=== PATIENT | female | born 1960 | race Caucasian/White ===

== ENCOUNTER 2021-12-03 19:20 | Outpatient (CLI) | payer OTHER, SELFPAY ==
[2021-12-03 21:50] LABS: Creatinine Urine 85.5 mg/dL
[2021-12-03 21:54] LABS: Microalbumin Creatinine Ratio 10 mg/g (0-30); Microalbumin Urine 1 mg/dL
== END 2021-12-03 19:21 | disposition home or self-care (01) ==
LOC: LKVREF 19:20
PROVIDERS: PCP Emergency Medicine; Visit Provider Emergency Medicine
DX: E11.9 Type 2 diabetes mellitus without complications (principal); E04.1 Nontoxic single thyroid nodule; I10 Essential (primary) hypertension; E66.8 Other obesity; R73.01 Impaired fasting glucose
CPT/HCPCS: 82043; 82570

== ENCOUNTER 2022-03-18 14:53 | Outpatient (CLI) | payer OTHER, SELFPAY ==
[2022-03-18 22:21] LABS: Vitamin B12* 815 pg/mL (243-894)
[2022-03-20 22:19] LABS: Free T3 3.5 pg/mL (2.5-4.3)
== END 2022-03-18 14:54 | disposition home or self-care (01) ==
PROVIDERS: PCP Emergency Medicine; Visit Provider Emergency Medicine
DX: E04.1 Nontoxic single thyroid nodule (principal); E11.9 Type 2 diabetes mellitus without complications; R73.01 Impaired fasting glucose; I48.91 Unspecified atrial fibrillation; I10 Essential (primary) hypertension; Z98.84 Bariatric surgery status
CPT/HCPCS: 82607; 84439; 84443; 84481

== ENCOUNTER 2022-05-29 08:21 | Outpatient (CLI) | payer OTHER, SELFPAY | END 2022-05-29 08:22 | disposition home or self-care (01) | PROVIDERS: PCP Emergency Medicine; Visit Provider Emergency Medicine | DX: I10 Essential (primary) hypertension (principal); E11.9 Type 2 diabetes mellitus without complications; E04.1 Nontoxic single thyroid nodule | CPT/HCPCS: 80048 ==

== ENCOUNTER 2022-07-29 12:16 | Outpatient (CLI) | payer OTHER, SELFPAY | END 2022-07-29 12:17 | disposition home or self-care (01) | PROVIDERS: PCP Emergency Medicine; Visit Provider Emergency Medicine | DX: E05.90 Thyrotoxicosis, unspecified without thyrotoxic crisis or storm (principal); R11.10 Vomiting, unspecified; R00.0 Tachycardia, unspecified; I48.91 Unspecified atrial fibrillation | CPT/HCPCS: 80076; 83690; 84439; 84443 ==

== ENCOUNTER 2022-08-13 07:11 | Outpatient (CLI) | payer OTHER, SELFPAY ==
--- NOTE | 2022-08-13 07:15 | CRLHL7_ITS ---
For Patients: As a result of the Century Cures Act, medical imaging exams and procedure reports are released immediately into your electronic medical record. You may view this report before your referring provider. If you have questions, please contact your health care provider. INDICATION: Nausea with vomiting. TECHNIQUE: Ultrasound abdomen limited. Sonographic images of the right upper quadrant were obtained using adame-scale and color Doppler images. COMPARISON: None. FINDINGS: Liver: Diffuse hepatic steatosis with areas of fatty sparing. No suspicious mass or duct dilatation. Gallbladder: No stones or sludge. Normal wall thickness. No pericholecystic fluid. Common bile duct: 5 mm. No duct dilatation. Pancreas: Unremarkable. Right kidney: There is an echogenic mass measuring 2.5 x 2.4 x 1.9 cm in the upper pole of the right kidney. Further evaluation with nonemergent CT scan of the abdomen without and with IV contrast is recommended. The right kidney is normal in size measuring 11.6 centimeters in length. No right renal stone or hydronephrosis is identified. Vasculature: Proximal abdominal aorta and IVC are unremarkable. IMPRESSION: 1. Normal gallbladder. 2. Diffuse hepatic steatosis with areas of fatty sparing. 3. Echogenic mass measuring 2.5 x 2.4 x 1.9 centimeter within the right kidney upper pole. Further evaluation with nonemergent CT scan of the abdomen without and with IV contrast is recommended. Dictated by Julio Wheeler MD @ 08/13/2022 8:09:29 AM (Electronically Signed)
== END 2022-08-13 07:12 | disposition home or self-care (01) ==
PROVIDERS: PCP Emergency Medicine; Visit Provider Emergency Medicine
DX: R11.2 Nausea with vomiting, unspecified (principal); K76.0 Fatty (change of) liver, not elsewhere classified; N28.89 Other specified disorders of kidney and ureter
CPT/HCPCS: 76705

== ENCOUNTER 2022-08-29 15:47 | Outpatient (CLI) | payer OTHER, SELFPAY ==
--- NOTE | 2022-08-29 16:00 | CRLHL7_ITS ---
For Patients: As a result of the Century Cures Act, medical imaging exams and procedure reports are released immediately into your electronic medical record. You may view this report before your referring provider. If you have questions, please contact your health care provider. INDICATION: Echogenic mass upper pole right kidney identified on a recent ultrasound August 13, 2022. Followup. TECHNIQUE: Multi phase CT of the abdomen and pelvis without and with intravenous contrast. 130 cc nonionic Isovue-370 administered. COMPARISON: Correlation is made with a right upper quadrant ultrasound August 13, 2022. FINDINGS: 1.4 x 1.6 x 1.6 cm right renal angiomyolipoma superior lateral pole. No renal stone, hydronephrosis, and no evidence for filling defects within the collecting systems or visualized included ureters. Curvilinear fibrosis or atelectasis posteromedial right lower lobe of the lung. No pleural or pericardial effusions. Postsurgical change from gastric bypass surgery. Small surgical clip or suture subcutaneous fat anterior to the upper abdominal wall. The liver, spleen, pancreas, gallbladder, adrenal glands, and left kidney are within normal limits. Normal caliber abdominal aorta and iliac arteries. Normal inferior vena cava. There is no evidence for bowel obstruction or ileus. No ascites or lymphadenopathy. The urinary bladder, uterus, and both adnexa are normal. Scattered hypertrophic and degenerative change of the included thoracolumbar spine with multilevel degenerative disc disease best appreciated at L3 and L4. IMPRESSION: Right renal angiomyolipoma. Please note that all CT scans at this facility use dose modulation, iterative reconstruction, and/or weight-based dosing when appropriate to reduce radiation dose to as low as reasonably achievable. Dictated by Aly Schreiber MD @ 09/01/2022 9:15:17 AM (Electronically Signed)
[2022-08-29 16:17] LABS: Creatinine* 0.7 mg/dL (0.5-1.5); Estimated Glomerular Filt Rate 97 ml/min
== END 2022-08-29 15:48 | disposition home or self-care (01) ==
LOC: CT 15:48
PROVIDERS: PCP Emergency Medicine; Visit Provider Emergency Medicine
DX: N28.9 Disorder of kidney and ureter, unspecified (principal); D17.71 Benign lipomatous neoplasm of kidney
CPT/HCPCS: 36415; 74178; 82565; Q9967

== ENCOUNTER 2022-10-06 08:26 | Outpatient (CLI) | payer OTHER, SELFPAY | END 2022-10-06 08:27 | disposition home or self-care (01) | LOC: NFLDREF 10-08 11:38 | PROVIDERS: PCP Emergency Medicine; Referring Provider Emergency Medicine; Visit Provider Emergency Medicine | DX: E05.90 Thyrotoxicosis, unspecified without thyrotoxic crisis or storm (principal); E11.9 Type 2 diabetes mellitus without complications; I10 Essential (primary) hypertension | CPT/HCPCS: 80053; 80061; 82043; 82570; 84443 ==

== ENCOUNTER 2023-09-16 08:45 | Outpatient (CLI) | payer OTHER, SELFPAY ==
--- OUTSIDE RECORDS SUMMARY | 2023-09-16 15:23 | XMS_ITS | Encounter Summary ---
Author Organization [place] Address [address] [place] [address]. [place] [address] Care Team Providers Care Laborer Orchard Name Role Phone Ellen Draper MD Primary Care Provider [phone] Encounter Details Date Type Department Care Team (Late st Contact Info) Description 06/17/2023 Medical Correspondence [facility] Info Mgmt [facility] [address] [place] [address] Scan, Non-Provider Social History Tobacco Use Types Packs/Day Years Used Date Smoking Tobacco: Never Smokeless Tobacco: Never Alcohol Use Standard Drinks/Week Comments Yes 0 (1 standard drink = 0.6 oz pur e alcohol) 2 drinks per month Adolescent Education Answer Date Record ed Getting School Help Needed Not on file 11/22 Sex and Gender Information Value Date Recorded Sex Assigned at Not on file Gender Identity Not on file Sexual Orientation Not on file documented as of this encounter Plan of Treatment Upcoming Encounters Date Type Department Care Team (Latest Contact Info) Description 09/30/2023 7:30 AM CDT Office Visit SX SURGERY CASES Haylee Melgar MD [facility] [address] [place] [address] India John PA-C [address] [place], [place] [id number] 09/30/2023 7:40 AM CDT Hospital Encounter [facility] Per[facility]Op [facility] [address] [place] [address] Haylee Melgar MD [facility] [place] [address] [facility] [address] [place] [address] 09/30/2023 7:40 AM CDT - 09/30/2023 10:10 AM CDT Surgery [facility] [address] [place] [address] Haylee Melgar MD [facility] [address] [facility] [address] [place] [address] Total Thyroidectomy Scheduled Procedures Name Priority Associated Diagnoses Date/Ti me THYROIDECTOMY, TOTAL Toxic multinodular goiter 09/30/2023 7:40 AM CDT documented as of this encounter Visit Diagnoses Not on filedocumented in this encounter Care Teams Laborer Orchard Relationship Specialty Start Date End Date Ellen Draper MD [facility] [address], [place] [address] PCP - General Family Medicine 03/25/21 documented as of this encounter
--- OUTSIDE RECORDS SUMMARY | 2023-09-16 15:23 | XMS_ITS | Encounter Summary ---
Author Organization [place] Address [address] [place] [address] Care Team Providers Care Roofing Applicator Name Role Phone Ellen Draper MD Primary Care Provider [phone]- [phone] Encounter Details Date Type Department Care Team (Latest Contact Info) Description 07/21/2023 Travel Social History Tobacco Use Types Packs/Day Years [...] Melgar MD [facility] [address] [address] India John PA-C [address] [place] [address] 09/30/2023 7:40 AM CDT Hospital Encounter [facility] PeriOp Services [address] [place] [phone] Haylee Melgar MD [facility] [address] [place] [address] 09/30/2023 7:40 AM CDT - 09/30/2023 10:10 AM CDT [facility]Op Services [address] [place] [address] Haylee Melgar MD [facility] [address] [place] [address] Total Thyroidectomy Scheduled Procedures Name Priority Associated Diagnoses Date/Ti me THYROIDECTOMY, TOTAL Toxic multinodular goiter 09/30/2023 7:40 AM CDT documented as of this encounter Visit Diagnoses Not on filedocumented in this encounter Care Teams Roofing Applicator Relationship Specialty Start Date End Date Ellen Draper MD [facility] [address] [place] [address] PCP - General Family Medicine 03/25/21 documented as of this encounter
--- OUTSIDE RECORDS SUMMARY | 2023-09-16 15:23 | XMS_ITS | Encounter Summary ---
Author Organization [place] Address [address] [place] [address] Care Team Providers Care Sand Control Worker Name Role Phone Ellen Draper MD Primary Care Provider [phone]- [phone] Haylee Melgar MD Unavailable [phone] Reason for Visit * Reason Onset Date Comments Schedule Surgery 08/21/2023 TOTAL THYROIDEC WILMA GENERAL PT INST TO HAVE H&P WITH PCP 150 MIN REQ PA ASSIST MGB NMS Encounter Details Date Type Department Care Team (Late st Contact Info) Description 08/21/2023 [facility] [place] [address] [place] [address] Haylee Melgar MD [facility] [place] [address] [facility] [address] [place] [address] Schedule Surgery (TOTAL THYROIDECTOMY GENERAL PT INST TO HAVE H&P WITH PCP 150 MIN REQ PA ASSIST MGB NMS) Social History Tobacco Use Types Packs/Day Years [...] on file documented as of this encounter Miscellaneous Notes * Telephone Encounter - Sirovy, Jenn, HINGING MACHINE OPERATOR - 08/21/2023 12:58 PM CDT Type of surgery: TOTAL THYROIDECTOMY Location of surgery: [facility] Date and time of surgery: 09/30/2023 @ 7:30 AM Surgeon: Haylee Melgar MD Pre-Op Appt Date: PATIENT TO SCHEDULE Post-Op Appt Date: PATIENT TO SCHEDULE Packet sent out: Yes Pre-cert/Authorization completed: Not Applicable Date: 08/21/2023 TOTAL THYROIDECTOMY GENERAL PT INST TO HAVE H&P WITH PCP 150 MIN REQ PA ASSIST MGB NMS documented in this encounter Plan of Treatment Upcoming Encounters Date Type Department Care Team (Latest Contact Info) Description 09/30/2023 7:30 AM CDT Office Visit SX SURGERY CASES Haylee Melgar MD [facility] [address] [place] [address] India John PA-C [address] [place] [address] 09/30/2023 7:40 AM CDT Hospital Encounter [facility] PeriOp Services [address] [place] [address] Haylee Melgar MD [facility] [address] [place] [address] 09/30/2023 7:40 AM CDT - 09/30/2023 10:[address] [facility] PeriOp [facility] [address] [place] [address] Haylee Melgar MD [facility] [address] [place] [address] Total Thyroidectomy Scheduled Procedures Name Priority Associated Diagnoses Date/Ti me THYROIDECTOMY, TOTAL Toxic multinodular goiter 09/30/2023 7:40 AM CDT documented as of this encounter Visit Diagnoses Not on filedocumented in this encounter Care Teams Sand Control Worker Relationship Specialty Start Date End Date Ellen Draper MD [facility] [address] [place] [address] PCP - General Family Medicine 03/25/21 Haylee Melgar MD [facility] [address] [address] Assigned Surgical Provider 08/09/23 documented as of this encounter
--- OUTSIDE RECORDS SUMMARY | 2023-09-16 15:23 | XMS_ITS | Clinical Summary ---
Author Organization [place] Address [address] [place] [address] Care Team Providers Care Purchasing Coordinator Name Role Phone Ellen Draper MD Primary Care Provider [phone] Haylee Melgar MD Unavailable [phone] Allergies Active Allergy Reactions Criticality Noted Date Comments Compazine 09/03/2012 Penicillins Other (See Comments),Rash High 07/02/2010 Pt. Was a child- ? rash childhood allergy Prochlorperazine Other (See Comments) 1 Other Reaction(s): restless legs, Tremors Adverse reaction Medications Medication Sig Dispensed Refills Start Date End Date Status lisinopril (PRINIVIL,ZESTRIL) 10 MG tablet Take 10 mg by mouth daily. Active methimazole (TAPAZOLE) 5 MG tablet Take 5 mg by mouth 06/15/2022 Active metoprolol tartrate (LOPRESSOR) 25 MG tablet 25 mg 2 times daily 10/26/2021 Activ e Multiple Vitamin (ONE-A-DAY ESSENTIAL) TABS Take 1 tablet by mouth daily Active pantoprazole (PROTONIX) 40 MG EC tablet Take 40 mg by mouth 07/04/2022 Activ e OZEMPIC, 0.25 OR 0.5 MG/DOSE, 2 MG/3ML pen Inject 0.5 mg Subcutaneous every 7 days 09/03/2022 Active Active Problems Problem Noted Date Diagnosed Date Palpitations Atypical chest pain Hypertension Overview: hx of atrial fib. Gastroesophageal reflux disease Atrial fibrillation Obesity Overview: h/o bariatric surgery Thyroid nodule Atrial flutter SVT (supraventricular tachycardia) (H24) Encounters Date Type Department Care Team Description 08/21/2023 Telephone [facility] Surgery [facility] [address] [place] [address] Haylee Melgar MD Schedule Surgery (TOTAL THYROIDECTOMY GENERAL PT INST TO HAVE H&P WITH PCP 150 MIN REQ PA ASSIST MGB NMS) 07/21/2023 3:15 PM CDT Office Visit [facility] Surgery [facility] [address] [place] [address] Haylee Melgar MD Toxic multinodular goiter (Primary Dx) 07/21/2023 Travel 06/18/2023 Telephone [facility] [address] [place] [address] Haylee Melgar MD Referral (Thyroid) 06/17/2023 Medical Correspondence [facility] [address] [place] [address] Scan, Non-Provider from Last 3 Months Family History Medical History Relation Comments Colon Cancer No family hx of Social History Tobacco Use Types Packs/Day Years [...] on file Sexual Orientation Not on file Last Filed Vital Signs Vital Sign Reading Time Taken Comments Blood Pressure 132/80 07/21/2023 3:19 PM CDT Pulse 73 07/21/2023 3:19 PM CDT Temperature 36 ??C (96.8 ??F) 07/27/2022 4:4 2 AM CDT Respiratory Rate 16 07/21/2023 3:19 PM CDT Oxygen Saturation 98% 07/21/2023 3:1 9 PM CDT Inhaled Oxygen Concentration - - Weight 108.9 kg (240 lb) 07/21/2023 3:1 9 PM CDT patient reported Height 162.6 cm (5' 4) 07/21/2023 3:19 PM CDT Body Mass Index 41.2 07/21/2023 3:19 PM CDT Plan of Treatment Upcoming Encounters Date Type Department Care Team (Latest Contact Info) Description 09/30/2023 7:30 AM CDT Office Visit SX SURGERY CASES Haylee Melgar MD [facility] [address] [place] [address] India John PA-C [address] [place] [address] 09/30/2023 7:40 AM CDT Hospital Encounter [facility] PeriOp Services [address] [place] [address] Haylee Melgar MD [facility] [address] [place] [address] 09/30/2023 7:40 AM CDT - 09/30/2023 10:10 AM CDT Surgery [facility] Per[facility]Op [facility] [address] [place] [address] [phone] Haylee Melgar MD [facility] [address] [place] [address] Total Thyroidectomy Scheduled Procedures Name Priority Associated Diagnoses Date/Ti me THYROIDECTOMY, TOTAL Toxic multinodular goiter 09/30/2023 7:40 AM CDT Health Maintenance Due Date Last Done Comments ADVANCE CARE PLANNING 1960 ANNUAL REVIEW OF HM ORDERS 1960 CT COLONOGRAPHY 1960 FIT 1960 FLEX SIG 1960 YEARLY PREVENTIVE VISIT 1960 sDNA (Cologuard) 1960 HIV SCREENING 1974 HEPATITIS C SCREENING 1977 RSV VACCINE ( & 60+) (1 - 1-dose 60+ series) 2019 PHQ-2 (once per calendar year) 2023 ZOSTER IMMUNIZATION (2 of 2) 10/09/2023 08/14/2023 INFLUENZA VACCINE (#1) 2023 , 11/18/2021, 12/06/2020, Additional history exists LIPID 04/19/2024 04/20/2019 MAMMO SCREENING 07/11/2024 07/11/2022, 06/16, 04/30/2020, Additional history exists DTAP/TDAP/TD IMMUNIZATION (2 - Td or Tdap) 01/01/2025 01/01/2015 GLUCOSE 07/27/2025 07/27/2022, 03/0 05/2019, 04/03/2019, Additional history exists PAP 02/02/2026 02/02/2023, 03/0 10/2019, 04/25/2019 COLONOSCOPY 04/08/2031 04/08/2021, 03/20, 02/27/2011, Additional history exists COLORECTAL CANCER SCREENING 04/08/2031 Pneumococcal Vaccine: Pediatrics (0 to 5 Years) and At-Risk Patients (6 to 64 Years) Aged Out 10/28/2012 No longer eligible based on patient's age to complete this topic COVID-19 Vaccine Completed 11/21/2022, 04/2021, 06/24/2021, Additional history exists HPV IMMUNIZATION Aged Out No longer e ligible based on patient's age to complete this topic IPV IMMUNIZATION Aged Out No longer e ligible based on patient's age to complete this topic MENINGITIS IMMUNIZATION Aged Out No l onger eligible based on patient's age to complete this topic RSV MONOCLONAL ANTIBODY Aged Out No l onger eligible based on patient's age to complete this topic Procedures Procedure Name Priority Date/Time Associated Diagnosis Comments LAB RESULT - HIM SCAN 06/17/2023 12:00 AM CDT BASIC METABOLIC PANEL STAT 07/27/2022 4:49 AM CDT MA SCREENING DIGITAL BILATERAL Routine 07/11/2022 7:38 AM CDT Encounter for screening mammogram for malignant neoplasm of breast COLONOSCOPY Routine 04/08/2021 7:32 AM WATER PLANT MAINTENANCE MECHANIC LIPID PROFILE Routine 04/20/2019 from Last 3 Months or Most Recently Relevant to Health Maintenance Results * Lab Result - HIM Scan (06/17/2023 12:00 AM CDT) 06/17/2023 Provider Outside NON-BEAKER LAB TE STING * (ABNORMAL) Basic metabolic panel (BMP) (07/27/2022 4:49 AM CDT) Sodium 138 136 - 145 mmol/L 07/27/2022 5:27 AM CDT LABORATORY Potassium 4.1 3.4 - 5.3 mmol/L 07/27/2022 5:27 AM CDT LABORATORY Chloride 103 98 - 107 mmol/L 07/27/2022 5:27 AM CDT LABORATORY Carbon Dioxide (CO2) 23 22 - 29 mmol/L 07/27/2022 5:27 AM CDT LABORATORY Anion Gap 12 7 - 15 mmol/L 07/27/2022 5:27 AM CDT LABORATORY Urea Nitrogen 9.8 8.0 - 23.0 mg/dL 07/27/2022 5:27 AM CDT LABORATORY Creatinine 0.77 0.51 - 0.95 mg/dL 07/27/2022 5:27 AM CDT [facility] Calcium 9.2 8.8 - 10.2 mg/dL 07/27/2022 5:27 AM CDT LABORATORY Glucose 127(H) 70 - 99 mg/dL 07/27/2022 5:27 AM CDT [facility] GFR Estimate 86 >60 mL/min/1.7 3m2 07/27/2022 5:27 AM CDT [facility] Comment:eGFR calculated usin g 2020 CKD-EPI equation. Blood STRUCTURE OF LEFT UPPER LIMB / Unknown Venipuncture / Unknown 07/27/2022 4:49 AM CDT 07/27/2022 4:53 AM CDT Andrea Medellin MD LAB - BLO OD ORDERABLES [facility] Acute [facility] Lab [address] Lab (1st floor, no room number) [place] [address], [facility] [phone] * MA Screening Digital Bilateral (07/11/2022 7:38 AM CDT) Anatomical Region Laterality Modality Breast Bilateral Mammography Impressions 07/11/2022 10:29 AM CDT IMPRESSION: ACR BI-RADS Category 1: Negative RECOMMENDED FOLLOW-UP: Annual routine screening mammogram The results and recommendations of this examination will be communicated to the patient. Benjamin Raines MD Narrative 07/11/2022 10:29 AM CDT BILATERAL FULL FIELD DIGITAL SCREENING MAMMOGRAM Performed on: 07/11/22 Compared to: 06/28/2021, 04/30/2020, and 04/22/2019 Technique: This study was evaluated with the assistance of Computer-Aided Detection. Findings: The breasts have scattered areas of fibroglandular density. ?? There is no radiographic evidence of malignancy. Ellen Draper MD IMG MAMMOGRAPHY OR DERABLES * COLONOSCOPY (04/08/2021 7:32 AM WATER PLANT MAINTENANCE MECHANIC) Pathologist [facility] Patient Name: Paulina Perkins ? Procedure Date: 04/08/2021 7:32 AM ? Date of : 1960 ?Admit Type: Outpatient Age: 61 ? Gender: Female Attending MD: Bayron Thornton MD ?? Total Sedation Time: 22_minutes continuous bedside 1:1 Instrument Name: 225 - Adult Colonoscope Procedure: ?Colonoscopy Indications: ?Screening for colorectal malignant neoplasm Providers: ?Bayron Thornton MD (Doctor) Referring MD: ? Medicines: ?Midazolam 3 mg IV, Fentanyl 150 micrograms IV Complications: ?No immediate complications. Procedure: ?Pre-Anesthesia Assessment: ?- Prior to the procedure, a History and Physical ?was performed, and patient medications and ?allergies were reviewed. The patient is competent. ?The risks and benefits of the procedure and the ?sedation options and risks were discussed with the ?patient. All questions were answered and informed ?consent was obtained. Patient identification and ?proposed procedure were verified by the physician ?in the procedure room. Mental Status Examination: ?alert and oriented. Airway Examination: normal ?oropharyngeal airway and neck mobility. Respiratory ?Examination: clear to auscultation. CV Examination: ?normal. Prophylactic Antibiotics: The patient does ?not require prophylactic antibiotics. Prior ?Anticoagulants: The patient has taken no ?anticoagulant or antiplatelet agents. ASA Grade ?Assessment: II - A patient with mild systemic ?disease. After reviewing the risks and benefits, ?the patient was deemed in satisfactory condition to ?undergo the procedure. The anesthesia plan was to ?use moderate sedation / analgesia (conscious ?sedation). Immediately prior to administration of ?medications, the patient was re-assessed for ?adequacy to receive sedatives. The heart rate, ?respiratory rate, oxygen saturations, blood ?pressure, adequacy of pulmonary ventilation, and ?response to care were monitored throughout the ?procedure. The physical status of the patient was ?re-assessed after the procedure. ?After obtaining informed consent, the colonoscope ?was passed under direct vision. Throughout the ?procedure, the patient's blood pressure, pulse, and ?oxygen saturations were monitored continuously. The ?Olympus Adult Colonoscope, Model # CF-DY677L, ?[place] # 225, SN # [id number] was introduced through ?the anus and advanced to the cecum, identified by ?appendiceal orifice and ileocecal valve. The ?colonoscopy was performed without difficulty. The ?patient tolerated the procedure well. The quality ?of the bowel preparation was good. The ileocecal ?valve, appendiceal orifice, and rectum were ?photographed. ? Findings: ? The perianal and digital rectal examinations were normal. ? A few small and large-mouthed diverticula were found in the sigmoid ? colon. ? The exam was otherwise without abnormality on direct and retroflexion ? views. ? Impression: ? - Diverticulosis in the sigmoid colon. ?- The examination was otherwise normal on direct ?and retroflexion views. ?- No specimens collected. Recommendation: ? - Repeat colonoscopy in 10 years for screening ?purposes. ? Procedure Code(s): ? --- Professional --- ? G0121, Colorectal cancer screening; colonoscopy on individual not ? meeting criteria for high risk Diagnosis Code(s): ? --- Professional --- ? Z12.11, Encounter for screening for malignant neoplasm of colon CPT copyright 2020 [employer]. All rights reserved. The codes documented in this report are preliminary and upon finisher polisher review may be revised to meet current compliance requirements. Electronically signed by Bayron Thornton MD __ Bayron Thornton MD 04/08/2021 8:11:15 AM I was physically present for the entire viewing portion of the exam. Bayron Thornton MD Number of Addenda: 0 Note Initiated On: 04/08/2021 7:32 AM MRN: ?[id number] Procedure Date: ? 04/08/2021 7:32:20 AM Scope Withdrawal Time: 0 hours 6 minutes 8 seconds Total Procedure Duration: 0 hours 20 minutes 8 seconds Estimated Blood Loss: ? Scope In: 7:45:28 AM Scope Out: 8:05:36 AM RADIOLOGY RESULTS 04/08/2021 7:32 AM WATER PLANT MAINTENANCE MECHANIC Bayron Thornton MD PROCEDURES RADIOLOGY RESULTS * Lipid Profile (04/20/2019) Cholesterol 143 90 - 200 mg/dL [facility] Triglycerides 108 40 - 197 mg/dL [facility] HDL Cholesterol 42 >=50 mg/dL [facility] LDL Cholesterol Calculated 79 <100 mg/dL [facility] Non HDL Cholesterol [facility] Blood specimen (specimen) 04/20/2019 Patient Reported LAB - BLOOD ORDERABL ES [facility] [address] [phone] from Last 3 Months or Most Recently Relevant to Health Maintenance Care Teams Purchasing Coordinator Relationship Specialty Start Date End Date Ellen Draper MD [facility] [address] [place] [address] PCP - General Family Medicine 03/25/21 Haylee Melgar MD [facility] [address] [facility] [address] [place] [address] Assigned Surgical Provider 08/09/23
--- OUTSIDE RECORDS SUMMARY | 2023-09-16 15:23 | XMS_ITS | Referral Summary ---
Author Organization [place] Address [address] [facility] [place] [address] Care Team Providers Care Sash Maker Name Role Phone Ellen Draper MD Primary Care Provider [phone]- [phone] Haylee Melgar MD Unavailable [phone] Encounters Date Type Department Care Team Description 08/21/2023 Telephone [facility] [address], [address] [place] [address] Haylee Melgar MD Schedule Surgery (TOTAL THYROIDECTOMY GENERAL PT INST TO HAVE H&P WITH PCP 150 MIN REQ PA ASSIST MGB NMS) 07/21/2023 Travel 07/21/2023 3:15 PM CDT Office Visit [facility] [address], [address] [place] [address] Haylee Melgar MD Toxic multinodular goiter (Primary Dx) 06/18/2023 Telephone [facility] [address], [address] [place] [address] Haylee Melgar MD Referral (Thyroid) 06/17/[address] [facility] [address] [place] [address] Scan, Non-Provider from Last 3 Months Allergies Active Allergy Reactions Criticality Noted Date [...] nodule Atrial flutter SVT (supraventricular tachycardia) (H24) Social History Tobacco Use Types Packs/Day Years [...] [place] [address] [place] [address] India John PA-C [address] [place] [address] 09/30/2023 7:40 AM CDT Hospital Encounter [facility] [address] [place] [address] Haylee Melgar MD [facility] [address] [place] [address] 09/30/2023 7:40 AM CDT - 09/30/2023 10:10 AM CDT Surgery [facility] [address] [place] [address] [phone] Haylee Melgar MD [facility] [place] [address] [place] [address] Total Thyroidectomy Scheduled Procedures Name Priority Associated Diagnoses Date/Ti me THYROIDECTOMY, TOTAL Toxic multinodular goiter 09/30/2023 7:40 AM CDT Procedures Procedure Name Priority Date/Time Associated Diagnosis Comments LAB RESULT - HIM SCAN 06/17/2023 12:00 AM CDT BASIC METABOLIC PANEL STAT 07/27/2022 4:49 AM CDT MA SCREENING DIGITAL BILATERAL Routine 07/11/2022 7:38 AM CDT Encounter for screening mammogram for malignant neoplasm of breast COLONOSCOPY Routine 04/08/2021 7:32 AM PREVENTION COORDINATOR LIPID PROFILE Routine 04/20/2019 from Last 3 [...] - 5.3 mmol/L 07/27/2022 5:27 AM CDT [facility] Chloride 103 98 - 107 mmol/L 07/27/2022 5:27 AM CDT LABORATORY Carbon Dioxide (CO2) 23 22 - 29 mmol/L 07/27/2022 5:27 AM CDT [facility] Anion Gap 12 7 - 15 mmol/L 07/27/2022 5:27 AM CDT [facility] Urea Nitrogen 9.8 8.0 - 23.0 mg/dL 07/27/2022 5:27 AM CDT LABORATORY Creatinine 0.77 0.51 - 0.95 mg/dL 07/27/2022 5:27 AM CDT LABORATORY Calcium 9.2 8.8 - 10.2 mg/dL 07/27/2022 5:27 AM CDT LABORATORY Glucose 127(H) 70 - 99 mg/dL 07/27/2022 5:27 AM CDT [facility] GFR Estimate 86 >60 mL/min/1.7 3m2 07/27/2022 5:27 AM CDT [facility] Comment:eGFR calculated usin 2020 CKD-EPI equation. Blood STRUCTURE OF LEFT UPPER LIMB / Unknown Venipuncture / Unknown 07/27/2022 4:49 AM CDT 07/27/2022 4:53 AM CDT Andrea Medellin MD LAB - BLO OD ORDERABLES [facility] [address] [facility] Lab (1st floor, no room number) [place] [address], [facility] [phone] * MA Screening Digital Bilateral (07/11/2022 7:38 [...] OR DERABLES * COLONOSCOPY (04/08/2021 7:32 AM PREVENTION COORDINATOR) [facility] Patient Name: Paulina Perkins ? Procedure Date: [...] continuously. The ?Olympus Adult Colonoscope, Model # CF-PY357N, ?[place]ora # 225, SN # [id number] was introduced through ?the anus and advanced [...] malignant neoplasm of colon CPT copyright 2020 [employer]. All rights reserved. The codes documented in this report are preliminary and upon remote medical coder review may be revised to meet current compliance requirements. Electronically signed by Bayron Thornton MD __ Bayron Thornton MD 04/08/2021 8:11:15 AM I was physically present for the entire viewing portion of the exam. Bayron Thornton MD Number of Addenda: 0 Note Initiated On: 04/08/2021 7:32 AM MRN: ?[id number] Procedure Date: ? 04/08/2021 7:32:20 AM Scope Withdrawal Time: 0 hours 6 minutes 8 seconds Total Procedure Duration: 0 hours 20 minutes 8 seconds Estimated Blood Loss: ? Scope In: 7:45:28 AM Scope Out: 8:05:36 AM RADIOLOGY RESULTS 04/08/2021 7:32 AM PREVENTION COORDINATOR Bayron Thornton MD PROCEDURES RADIOLOGY RESULTS * Lipid Profile (04/20/2019) Cholesterol 143 90 - 200 mg/dL [facility] Triglycerides 108 40 - 197 mg/dL [facility] HDL Cholesterol 42 >=50 mg/dL [facility] LDL Cholesterol Calculated 79 <100 mg/dL [facility] Non HDL Cholesterol [facility] Blood specimen (specimen) 04/20/2019 Patient Reported LAB - BLOOD ORDERABL ES [facility] [address] [phone] from Last 3 Months or Most Recently Relevant to Health Maintenance Care Teams Sash Maker Relationship Specialty Start Date End Date Ellen Draper MD [facility] [address] [place] [address] PCP - General Family Medicine 03/25/21 Haylee Melgar MD [facility] [place] [address] [facility] [address] [place] [address] Assigned Surgical Provider 08/09/23
--- OUTSIDE RECORDS SUMMARY | 2023-09-16 15:23 | XMS_ITS | Encounter Summary ---
Author Organization [facility] Address [address], [place] [address] Care Team Providers Care Fish Flipper Name Role Phone Adriana Bridges MD Primary Care Provider [phone] Encounter Details Date Type Department Care Team (Late st Contact Info) Description 01/22/2016 Correspondence None No Primary/Referring, Phy CHIROPRACTIC PATIENT LIAB NOTIFICATION AND AGRMNT Social History Tobacco Use Types Packs/Day Years Used Date Smoking Tobacco: Never Assessed Sex and Gender Information Value Date Recorded Sex Assigned at Not on file Gender Identity Not on file Sexual Orientation Not on file documented as of this encounter Plan of Treatment Not on file documented as of this encounter Visit Diagnoses Not on filedocumented in this encounter Care Teams Fish Flipper Relationship Specialty Start Date End Date Adriana Bridges MD [address] [place] [address] PCP - General Family Practice 01/21/16 documented as of this encounter
--- OUTSIDE RECORDS SUMMARY | 2023-09-16 15:23 | XMS_ITS | Encounter Summary ---
Author Organization [place] Address [address] [place] [address] Care Team Providers Care Flight Operations Specialist Name Role Phone Ellen Draper MD Primary Care Provider [phone] Reason for Visit * Reason Comments New Patient thyroid Encounter Details Date Type Department Care Team (Late st Contact Info) Description 07/21/2023 3:15 PM CDT Office Visit [facility] [place] [address] [place] [address] Haylee Melgar MD [facility] [address] [place] [address] Toxic multinodular goiter (Primary Dx) Social History Tobacco Use Types Packs/Day Years [...] on file documented as of this encounter Last Filed Vital Signs Vital Sign Reading Time Taken Comments Blood Pressure 132/80 07/21/2023 3:19 PM CDT Pulse 73 07/21/2023 3:19 PM CDT Temperature - - Respiratory Rate 16 07/21/2023 3:19 PM CDT Oxygen Saturation 98% 07/21/2023 3:1 9 PM CDT Inhaled Oxygen Concentration - - Weight 108.9 kg (240 lb) 07/21/2023 3:1 9 PM CDT patient reported Height 162.6 cm (5' 4) 07/21/2023 3:19 PM CDT Body Mass Index 41.2 07/21/2023 3:19 PM CDT documented in this encounter Progress Notes * Haylee Melgar MD - 07/21/2023 3:15 PM CDT Images from the original note were not included. History of Present Illness Paulina Perkins is a 63 year old female who is referred from Dr. Aly Ramirez for surgery consultation regarding toxic multinodular goiter. Paulina was first diagnosed with an enlarged thyroid and lowTSH ~ 4 years ago. Thyroid uptake and scan in 2021 showed rather diffuse uptake which was 16.2%, technically within normal range, but inappropriately high for a person with suppressed TSH. She has been taking methimazole since that time, 5 mg daily. The has a history of atrial fibrillation and has undergone successful cardiac ablation. She is not on anticoagulation. She denies fatigue, weight changes, heat/cold intolerance, bowel/skin changes orCVS symptoms. She denies swallowing difficulty, shortness of breath, frequent throat clearing, cough, and hoarseness. She does not have a family history of thyroid cancer. She denies a personal history of radiation exposure. Paulina has no prior neck surgery. Work up to date: Imaging: Thyroid Ultrasound: 06/12/23: Imaging was personally reviewed with Paulina. FNA biopsy results: Benign FNA of dominant bilateral nodules on 08/11/2019 Labs: TSH: 1.1 (06/17/23) Free T4: 0.91 (06/17/23) Free T3:3.11 (06/17/23) Calcium 9.6 (06/17/23) Past Medical History: Past Medical History: Diagnosis Date Atrial fibrillation (H) Atrial flutter (H) Atypical chest pain Gastro-oesophageal reflux disease Hypertension hx of atrial fib. Obesity h/o bariatric surgery Palpitations SVT (supraventricular tachycardia) (H24) Thyroid nodule Past Surgical History: Past Surgical History: Procedure Laterality Date APPENDECTOMY 1998 COLONOSCOPY 02/27/2011 Procedure:COLONOSCOPY; COLONOSCOPY; Surgeon:FABRICE HEIN; Location: GI COLONOSCOPY N/A 04/08/2021 Procedure: COLONOSCOPY; Surgeon: Bayron Thornton MD; Location: GI ENT SURGERY 1983 T&A GI SURGERY 1998 gastric pouch Social History: Social History Tobacco Use Smoking status: Never Smokeless tobacco: Never Vaping Use Vaping status: Never Used Substance Use Topics Alcohol use: Yes Comment: 2 drinks per month Drug use: Never ROS: The 10 point review of systems is negative other than noted in the HPI. Physical Exam: BP 132/80 Pulse 73 Resp 16 Ht 1.626 m (5' 4) Wt 108.9 kg (240 lb) SpO2 98% BMI 41.20 kg/m?? Well developed, well nourished female in no apparent distress. HEENT: Normocephalic, atraumatic. Eyes without exophthalmos. Neck: Normal appearance. Range of motion is normal. No neck masses on visual inspection. Thyroid: Diffusely enlarged. Lymph: No cervical adenopathy. Respirations: Unlabored. Neurologic: Alert. Speech is clear. Moves all extremities with good strength Skin: Warm and dry. Psychologic: Alert and appropriate range of emotions. Assessment and Plan: Paulina has toxic multinodular goiter with has been managed with methimazole for several years now. Wediscussed the options of continuing methimazole alf (which has the benefits of avoiding surgical risk, but can be difficult to properly dose and rarely result in liver damage or agranulocytosis) and surgical treatment (which would result in post-surgical hypothyroidism with more predictable levothyroxine dosing and no further need for thyroid nodule surveillance). I am recommending total thyroidectomy. Paulina is aware of the risks to the recurrent laryngeal nerve and to the parathyroid glands during surgery. She is interested in proceeding with surgery sometime in the future, but likely not for a few months. She will call to make a surgery appointment when she is ready. Haylee Melgar MD Please route to Primary Care Provider (PCP) and Referring Provider 50 minutes total time spent on the date of this encounter doing: chart review, review of test results, patient visit, physical exam, education, counseling, developing plan of care, and documenting. documented in this encounter Plan of Treatment Upcoming Encounters Date Type Department Care Team (Latest Contact Info) Description 09/30/2023 7:30 AM CDT Office Visit [facility] Haylee Melgar MD [facility] [place] [address] [place] [address] India John PA-C [address] [place] [address] 09/30/2023 7:40 AM CDT Hospital Encounter [facility] [address] [place] [address] Haylee Melgar MD [facility] [address] [address] 09/30/2023 7:40 AM CDT - 09/30/2023 10:10 AM CDT Surgery [facility] [address] [place] [address] Haylee Melgar MD [facility] [place] [address] [address] Total Thyroidectomy Scheduled Procedures Name Priority Associated Diagnoses Date/Ti me THYROIDECTOMY, TOTAL Toxic multinodular goiter 09/30/2023 7:40 AM CDT documented as of this encounter Visit Diagnoses Diagnosis Toxic multinodular goiter- Primary Toxic multinodular goiter without mention of thyrotoxic crisis or storm Toxic multinodular goiter Toxic multinodular goiter without mention of thyrotoxic crisis or storm documented in this encounter Care Teams Flight Operations Specialist Relationship Specialty Start Date End Date Ellen Draper MD [facility] [address] [place] [address] PCP - General Family Medicine 03/25/21 documented as of this encounter
--- OUTSIDE RECORDS SUMMARY | 2023-09-16 15:23 | XMS_ITS | Encounter Summary ---
Author Organization [facility] Address [address] [address] Care Team Providers Care Synthetic Filament Spinner Name Role Phone Adriana Bridges MD Primary Care Provider [phone] Encounter Details Date Type Department Care Team (Latest Contact Info) Description 12/02/1994 Orders Only Angie Lam Social History Tobacco Use Types Packs/Day Years Used Date Smoking Tobacco: Never Assessed Sex and Gender Information Value Date Recorded Sex Assigned at Not on file Gender Identity Not on file Sexual Orientation Not on file documented as of this encounter Plan of Treatment Not on file documented as of this encounter Visit Diagnoses Not on filedocumented in this encounter Care Teams Synthetic Filament Spinner Relationship Specialty Start Date End Date Adriana Bridges MD [address] [place] [address] PCP - General Family Practice 01/21/16 documented as of this encounter
--- OUTSIDE RECORDS SUMMARY | 2023-09-16 15:23 | XMS_ITS | Clinical Summary ---
Author Organization [facility] Address [address] [address] Care Team Providers Care Plasterer Stucco Name Role Phone Adriana Bridges MD Primary Care Provider [phone] Source Comments You are receiving this document as you are listed as the primary care provider,follow-up provider, or the patient has been referred to you for consultation.This is in compliance with the Medicare and[facility] EHR Incentive Program,which states Providers who transition their patient to another setting of careor provider of care or refers their patient to another provider of care shouldprovide summary care record for each transition of care or referral. [facility] Active Problems Problem Noted Date Diagnosed Date Segmental and somatic dysfunction of sacral rebekah on 01/22/2016 Low back pain 01/22/2016 Spasm of back muscles 01/22/2016 Immunizations Name Administration Dates Next Due DT Ped 11/24/1989 Flu Vac Preserv Free (3+yrs) 11/13/2008,12/26/19 07 Influenza IIV4 (Quadrivalent) 0.5mL (79901) 11/18,11/30/2012 Social History Tobacco Use Types Packs/Day Years Used Date Smoking Tobacco: Never Assessed Sex and Gender Information Value Date Recorded Sex Assigned at Not on file Gender Identity Not on file Sexual Orientation Not on file Plan of Treatment Health Maintenance Due Date Last Done Comments Cervical Cancer Screening Due 1959 Colon Cancer Screening Plan Due 1959 Hep C Screening (Preventive Services) 1960 Mammogram 1959 HIV Screening (Preventive Services) 1975 Adult Preventive Visit 1977 DTaP/Tdap/Td (2 - Tdap) 11/25/1999 11/24/1989 Cholesterol 2004 Zoster/Shingles (1 of 2) 2009 COVID-19 Vaccine ( season) 2022 Influenza (#1) 2023 12/15/2014, 11/16, 11/13/2008, Additional history exists HepA Aged Out No longer eligi ble based on patient's age to complete this topic HepB Aged Out No longer eligi ble based on patient's age to complete this topic Hib Aged Out No longer eligi ble based on patient's age to complete this topic IPV (Polio) Aged Out No longer eligi ble based on patient's age to complete this topic MCV4 Aged Out No longer eligi ble based on patient's age to complete this topic Pneumococcal Aged Out No longer eligi ble based on patient's age to complete this topic Care Teams Plasterer Stucco Relationship Specialty Start Date End Date Adriana Bridges MD [address] [place] [address] PCP - General Family Practice 01/21/16
--- OUTSIDE RECORDS SUMMARY | 2023-09-16 15:23 | XMS_ITS | Encounter Summary ---
Author Organization [place] Address [address] [place] [address] Care Team Providers Care Master Plumber Name Role Phone Ellen Draper MD Primary Care Provider [phone] Reason for Visit * Reason Onset Date Comments Referral 06/18/2023 Thyroid Encounter Details Date Type Department Care Team (Late st Contact Info) Description 06/18/2023 Telephone [facility] [place] [address] [place] [address] Haylee Melgar MD [facility] [place] [address] [place], [place] [phone] Referral (Thyroid) Social History Tobacco Use Types Packs/Day Years [...] encounter Miscellaneous Notes * Telephone Encounter - Abdoulaye Bozena Singh - 06/18/2023 11:13 AM CDT Referral received from Aristides Galarza. Thyroid Endo notes sent to [facility] to scan on 06/21/23, Attempt #1: Called patient at [phone]. No answer - left message for patient to return call to clinic [phone]. documented in this encounter Plan of Treatment Upcoming Encounters Date Type Department Care Team (Latest Contact Info) Description 09/30/2023 7:30 AM CDT Office Visit [facility] Haylee Melgar MD [facility] [place] [address] [place] [address] India John PA-C [address] [place] [address] 09/30/2023 7:40 AM CDT Hospital Encounter [facility] [address] [place] [phone] Haylee Melgar MD [facility] [email or web address] [address] 09/30/2023 7:40 AM CDT - 09/30/2023 10:10 AM CDT [facility] [address] [place] [address] Haylee Melgar MD [facility] [place] [email or web address] [address] Total Thyroidectomy Scheduled Procedures Name Priority Associated Diagnoses Date/Ti me THYROIDECTOMY, TOTAL Toxic multinodular goiter 09/30/2023 7:40 AM CDT documented as of this encounter Visit Diagnoses Not on filedocumented in this encounter Care Teams Master Plumber Relationship Specialty Start Date End Date Ellen Draper MD [facility] [address] [place] [address] PCP - General Family Medicine 03/25/21 documented as of this encounter
== END 2023-09-16 08:46 | disposition home or self-care (01) ==
LOC: NFLDREF 15:21
PROVIDERS: PCP Emergency Medicine; Referring Provider Emergency Medicine; Visit Provider Emergency Medicine
DX: Z01.818 Encounter for other preprocedural examination (principal); E11.9 Type 2 diabetes mellitus without complications; E78.2 Mixed hyperlipidemia; E05.90 Thyrotoxicosis, unspecified without thyrotoxic crisis or storm; D58.2 Other hemoglobinopathies; E66.8 Other obesity
CPT/HCPCS: 80053; 82043; 82570

== ENCOUNTER 2023-12-11 09:00 | Outpatient (CLI) | payer OTHER, SELFPAY ==
--- OUTSIDE RECORDS SUMMARY | 2023-12-13 17:07 | XMS_ITS | Clinical Summary ---
Author Organization [place] Address [address] [place] [address] Care Team Providers Care Transit Proof Machine Operator Name Role Phone Ellen Draper MD Primary Care Provider [phone] Haylee Melgar MD Unavailable [phone] Allergies Active Allergy Reactions Criticality Noted Date Comments Compazine 09/03/2012 Penicillins Other (See Comments),Rash High 07/02/2010 Pt. Was a child- ? rash childhood allergy Prochlorperazine Other (See Comments) 1 Other Reaction(s): restless legs, Tremors Adverse reaction Other Reaction(s): restless legs Medications lisinopril (PRINIVIL,ZESTRIL ) 10 MG tablet Take 10 mg by mouth daily. Active Multiple Vitamin (ONE-A-DAY ESSENTIAL) TABS Take 1 tablet by mouth daily Active pantoprazole (PROTONIX) 40 MG EC tablet Take 40 mg by mouth 07/05/19 23 Active OZEMPIC, 0.25 OR 0.5 MG/DOSE, 2 MG/3ML pen Inject 0.5 mg Subcutaneous every 7 days 09/04/19 23 Active aspirin 81 MG EC tablet Take 81 mg by mouth daily Active Melatonin 10 MG CAPS Take 10 mg by mouth daily Active metoprolol succinate ER (TOPROL XL) 50 MG 24 hr tablet 07/20/19 24 Active levothyroxine (SYNTHROID/LEVOTH ROID) 175 MCG tabletIndications :S/P total thyroidectomy Take 1 tablet (175 mcg) by mouth every morning (before breakfast). 60 tablet 1 10/15/19 24 Active Active Problems Problem Noted Date Diagnosed Date S/P total thyroidectomy 10/13/2023 Palpitations Atypical chest pain Hypertension Overview (05/13/2019): hx of atrial fib. Gastroesophageal reflux disease Atrial fibrillation Obesity Overview (05/13/2019): h/o bariatric surgery Thyroid nodule Atrial flutter SVT (supraventricular tachycardia) Encounters Date Type Department Care Team Description 11/03/2023 2:15 PM CDT Office Visit [facility] [place] [address] [facility] [place] [address] Haylee Melgar MD Toxic multinodular goiter (Primary Dx) 11/03/2023 Travel 10/13/2023 7:40 AM CDT - 10/13/2023 10:10 AM CDT Surgery [facility] [address] [place] [address] Haylee Melgar MD Total thyroidectomy 10/13/2023 7:36 AM CDT [facility] [address] [place] [address] Bayron Dailey MD 10/13/2023 5:52 AM CDT - 10/14/2023 10:05 AM CDT Hospital Encounter [facility] 5 Medical Surgical [address] [place] [place] [address] Haylee Melgar MD S/P total thyroidectomy (Primary Dx) Discharge Disposition: Home or Self Care 10/13/2023 Travel from Last 3 Months Family History Medical History Relation Comments Colon Cancer No family hx of Social History Tobacco Use Types Packs/Day Years Used Date Smoking Tobacco: Never Smokeless Tobacco: Never Tobacco Cessation:Counseling Given: Yes Alcohol Use Standard Drinks/Week Comments Yes 0 (1 standard drink = 0.6 oz pur e alcohol) 2 drinks per month Adolescent Education Answer Date Record ed Getting School Help Needed Not on file 11/22 Food Insecurity Answer Date Recorded Within the past 12 months, d id you worry that your food would run out before you got money to buy more? No 10/13/2023 Within the past 12 months, d id the food you bought just not last and you didn? t have money to get more? No 10/13/2023 Housing Stability Answer Date Recorded Do you have housing? (Tito lemus is defined as stable permanent housing and does not include staying ouside in a car, in a tent, in an abandoned building, in an overnight assisted, or couch-surfing.) Yes 10/13/2023 Are you worried about losing your housing? No 10/13/2023 Financial Resource Strain Answer Date R ecorded Within the past 12 months, h ave you or your family members you live with been unable to get utilities (heat, electricity) when it was really needed? No 10/13/2023 Transportation Needs Answer Date Record ed Within the past 12 months, h as lack of transportation kept you from medical appointments, getting your medicines, non-medical meetings or appointments, work, or from getting things that you need? No 10/13/2023 Interpersonal Safety Answer Date Record ed Do you feel physically and e motionally safe where you currently live? Patient unable to answer 10/13/2023 Within the past 12 months, h ave you been hit, slapped, kicked or otherwise physically hurt by someone? Patient unable to answer 10/13/2023 Within the past 12 months, h ave you been humiliated or emotionally abused in other ways by your partner or ex-partner? 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 Gender Identity Not on file Sexual Orientation Not on file Last Filed Vital Signs Vital Sign Reading Time Taken Comments Blood Pressure 128/86 11/03/2023 2:03 PM CDT Pulse 77 11/03/2023 2:03 PM CDT Temperature 36.4 ??C (97.5 ??F) 10/14/2023 7:27 AM CD T Respiratory Rate 16 11/03/2023 2:03 PM CDT Oxygen Saturation 98% 11/03/2023 2:03 PM CDT Inhaled Oxygen Concentration - - Weight 112.5 kg (248 lb) 11/03/2023 2:03 PM CDT Height 162.6 cm (5' 4) 11/03/2023 2:03 PM CDT Body Mass Index 42.57 11/03/2023 2:03 PM CDT Plan of Treatment Health Maintenance Due Date Last Done Comments ADVANCE CARE PLANNING 1960 ANNUAL REVIEW OF HM ORDERS 1959 CT COLONOGRAPHY 1959 FIT 1959 FLEX SIG 1959 YEARLY PREVENTIVE VISIT 1959 sDNA (Cologuard) 1959 HIV SCREENING 1974 HEPATITIS C SCREENING 1977 RSV VACCINE (1 - Risk 60-74 years 1-dose series) 2019 TSH W/FREE T4 REFLEX 04/19/2020 04/20/2019 PHQ-2 (once per calendar year) 2023 BMP 07/28/2023 07/27/2022, 03/0 05/2019, 04/03/2019, Additional history exists ZOSTER IMMUNIZATION (2 of 2) 10/09/2023 08/14/2023 COVID-19 Vaccine ( season) 2023 11/21/2022, 11/18/2021, 06/24/2021, Additional history exists INFLUENZA VACCINE (#1) 2023 , 11/06/2022, 11/18/2021, Additional history exists LIPID 04/19/2024 04/20/2019 MAMMO SCREENING 07/11/2024 07/11/2022, 06/16, 04/30/2020, Additional history exists DTAP/TDAP/TD IMMUNIZATION (2 - Td or Tdap) 01/01/2025 01/01/2015 PAP 02/02/2026 02/02/2023, 03/0 10/2019, 04/25/2019 GLUCOSE 10/12/2026 10/13/2023, 09/17, 07/27/2022, Additional history exists COLONOSCOPY 04/08/2031 04/08/2021, 03/20, 02/27/2011, Additional history exists COLORECTAL CANCER SCREENING 04/08/2031 Pneumococcal Vaccine: Pediatrics (0 to 5 Years) and At-Risk Patients (6 to 64 Years) Aged Out 10/28/2012 No longer eligible based on patient's age to complete this topic HPV IMMUNIZATION Aged Out No longer e ligible based on patient's age to complete this topic MENINGITIS IMMUNIZATION Aged Out No l onger eligible based on patient's age to complete this topic RSV MONOCLONAL ANTIBODY Aged Out No l onger eligible based on patient's age to complete this topic Procedures Procedure Name Priority Date/Time Associated Diagnosis Comments PARATHYROID HORMONE INTACT Timed 10/14/2023 6:27 AM CDT CALCIUM Timed 10/14/2023 6:27 AM CDT PARATHYROID HORMONE INTACT Timed 10/13/2023 5:59 PM CDT CALCIUM Timed 10/13/2023 5:59 PM CDT GLUCOSE BY METER Routine 10/13/2023 11:1 4 AM CDT SURGICAL PATHOLOGY EXAM Routine 10/13/2023 9:28 AM CDT ANE AIRWAY ETT PERFORMABLE Routine 10/13/2023 7:47 AM CDT THYROIDECTOMY, TOTAL 10/13/2023 7:38 AM CDT Toxic multinodular goiter Special Needs REQ 150 MIN GLUCOSE BY METER Routine 10/13/2023 6:08 AM CDT EKG CARDIAC - HIM SCAN 09/16/2023 12:00 AM CDT EKG CARDIAC - HIM SCAN 09/16/2023 12:00 AM CDT BASIC METABOLIC PANEL STAT 07/27/2022 4:49 AM CDT MA SCREENING DIGITAL BILATERAL Routine 07/11/2022 7:38 AM CDT Encounter for screening mammogram for malignant neoplasm of breast COLONOSCOPY Routine 04/08/2021 7:32 AM SOLAR TECHNICIAN TSH Routine 04/20/2019 LIPID PROFILE Routine 04/20/2019 from Last 3 Months or Most Recently Relevant to Health Maintenance Results * Parathyroid Hormone Intact (10/14/2023 6:27 AM CDT) Only the most recent of2 resultswithin the time period is included. Parathyroid Hormone Intact 34 15 - 65 pg/mL 10/14/2023 7:25 AM CDT LABORATORY Blood STRUCTURE OF RIGHT HAND / Unknown Venipuncture / Unknown 10/14/2023 6:27 AM CDT 10/14/2023 7:00 AM CDT Narrative LABORATORY - 10/14/2023 7:25 AM CDT This result was obtained with the [employer]ona Ele[employer] PTH STAT assay. This reference range differs from PTH assays used in other [facility] laboratories. Haylee Melgar MD LAB - BLOOD ORDERABLES Fin al Result Performing Organization Address City/[facility] Co de Phone Number [facility] [address] Lab (1st floor, no room number) [place] [address] * Calcium (10/14/2023 6:27 AM CDT) Only the most recent of2 resultswithin the time period is included. Pathologist [facility] Calcium 9.0 8.8 - 10.4 mg/dL 10/14/2023 7:24 AM CDT LABORATORY Comment:Reference intervals for this test were updated on 09/01/2023 to reflect our healthy population more accurately. There may be differences in the flagging of prior results with similar values performed with this method. Those prior results can be interpreted in the context of the updated reference intervals. Blood STRUCTURE OF RIGHT HAND / Unknown Venipuncture / Unknown 10/14/2023 6:27 AM CDT 10/14/2023 7:00 AM CDT Haylee Melgar MD LAB - BLOOD ORDERABLES Fin al Result Performing Organization Address City/[facility]/ZIP Co de Phone Number [facility] Lab [address] Lab (1st floor, no room number) [place] [phone] [place] [address] * (ABNORMAL) Glucose by meter (10/13/2023 11:14 AM CDT) Only the most recent of2 resultswithin the time period is included. GLUCOSE BY METER POCT 137(H) 70 - 99 mg/dL 10/13/2023 11:22 AM CDT LABORATORY POC Blood, Capillary BLOOD SPECIMEN / Unknown 10/13/2023 11:14 AM CDT 10/13/2023 11:22 AM CDT us Haylee Melgar MD [facility] POCT Final Re sult LABORATORY [facility] Lab [address] [facility] Lab (1st floor, no room number) [place] [phone] [place] [address] * Surgical Pathology Exam (10/13/2023 9:28 AM CDT) Case Report Surgical Pathology Report ? Case: [id number] ? Authorizing Provider: ??Haylee Melgar MD ?Collected: ? 10/13/2023 09:28 AM ? Ordering Location: ? [facility] ?? Received: ?10/13/2023 10:51 AM ? Main OR ? Pathologist: ? Sharif Sandoval, ? MD ? Specimens: ?? A) - Thyroid, Right, right lobe of thyroid, suture lemus superior pole ? B) - Thyroid, left, Left lobe of thyorid - stitch lemus superior pole ? 10/14/2023 12:06 PM CDT LABORATORY Final Diagnosis Thyroid, total thyroidectomy- Nodular hyperplasia, no evidence of malignancy 10/14/2023 12:06 PM CDT LABORATORY Clinical Information Procedure: Total Thyroidectomy - Bilateral Pre-op Diagnosis: Toxic multinodular goiter [E05.20] Post-op Diagnosis: E05.20 - Toxic multinodular goiter [ICD-10-CM] 10/14/2023 12:06 PM CDT LABORATORY Gross Description A(1). Thyroid, Right, right lobe of thyroid, suture lemus superior pole: The specimen is received in formalin, labeled with the patient's name, medical record number and other identifying information designated right lobe of thyroid, suture lemus superior pole. It consists of a 79.7 g, 8.8 x 6.1 x 3.2 cm right thyroid lobe. The specimen is oriented with a stitch at superior pole, per the container. Ink identifiers: Anterior surface = blue, posterior surface = black, and is with margin = orange. The outer surface of the thyroid is dark red, smooth with a 1.5 x 1.4 cm focal area of disruption on the superior pole adjacent to the stitch. No possible parathyroid tissue is identified. Sectioning from superior to inferior reveals worley-red, solid, soft, and diffusely multinodular cut surfaces. No tumor or calcifications are identified. Php Web Developer sections submitted as follows: A1-superior lobe A2-middle lobe A3-lower lobe A4-isthmus to include margin B(2). Thyroid, left, Left lobe of thyorid - stitch lemus superior pole: The specimen is received in formalin, labeled with the patient's name, medical record number and other identifying information designated left lobe of thyroid-stitch lemus superior pole. It consists of a 63.1 g, 7.9 x 5.1 x 3.3 cm left thyroid lobe. The specimen is oriented with a stitch at superior, per the container. Ink identified: Anterior surface = blue, posterior surface = black, and isthmus margin = orange the capsule is worley-red, smooth, and intact. No possible parathyroid tissue is present. Sectioning from superior to inferior reveals worley-red, solid, soft, diffusely multinodular cut surfaces. No tumor or calcifications are identified. Php Web Developer sections submitted as follows: B1-superior lobe B2-middle lobe B3-lower lobe B4-Isthmus to include margin (SHOBHA Benoit)10/13/2023 12:21 PM 10/14/2023 12:06 PM CDT LABORATORY Microscopic Description Microscopic performed 10/14/2023 12:06 PM CDT LABORATORY Performing Labs The technical component of this testing was completed at [facility]. Stain controls for all stains resulted within this report have been reviewed and show appropriate reactivity. 10/14/2023 12:06 PM CDT LABORATORY Case Images 10/14/2023 12:06 PM CDT LABORATORY Tissue STRUCTURE OF RIGHT LOBE OF THYROID GLAND / Unknown 10/13/2023 9:28 AM CDT 10/13/2023 10:51 AM CDT Tissue specimen (specimen) STRUCTURE OF LEFT LOBE OF THYROID GLAND / Unknown 10/13/2023 10:05 AM CDT 10/13/2023 10:51 AM CDT us Haylee Melgar MD LAB - BEAKER AP Final Resu lt LABORATORY [facility] Acute Care Lab [address] 1[address] floor, [address] [place] [address], [place] [phone] LABORATORY [facility] Acute Care Lab [address] Lab (1st floor, no room number) [place] [address], [facility] * ANE AIRWAY ETT PERFORMABLE (10/13/2023 7:47 AM CDT) Narrative Sukh Mcfadden APRN INSURANCE AGENT - 10/13/2023 7:47 AM CDT Sukh Mcfadden APRN INSURANCE AGENT ? 10/13/2023 ??7:57 AM Airway ? Patient location during procedure: OR ? Procedure Start/Stop Times: 10/13/2023 7:47 AM Staff - ? Performed By: INSURANCE AGENT Consent for Airway ? Urgency: elective Indications and Patient Condition ? Indications for airway management: minerva-procedural and airway protection ? Induction type:intravenous ? Mask difficulty assessment: 0 - not attempted Final Airway Details ? Final airway type: endotracheal airway ? Successful airway: ETT - single and Oral Endotracheal Airway Details ? ETT size (mm): 7.0 ? Cuffed: yes ? Successful intubation technique: direct laryngoscopy ? DL Blade Type: Zhang 2 ? Grade View of Cords: 1 ? Adjucts: stylet ? Position: Right ? Measured from: lips ? Secured at (cm): 22 ? Bite block used: None Post intubation assessment ? Placement verified by: capnometry and equal breath sounds ? Number of attempts at approach: 1 ? Number of other approaches attempted: 0 ? Secured with: tape ? Ease of procedure: easy ? Dentition: Intact Medication(s) Administered Medication Administration Time: 10/13/2023 7:47 AM us Bayron Dailey MD CT ANESTHESIA Final Result * EKG Cardiac - HIM Scan (09/16/2023 12:00 AM CDT) Only the most recent of2 resultswithin the time period is included. 09/16/2023 Provider Outside ECG ORDERABLES Final Result * (ABNORMAL) Basic metabolic panel (BMP) (07/27/2022 [...] - 99 mg/dL 07/27/2022 5:27 AM CDT LABORATORY GFR Estimate 86 >60 mL/min/1.7 3m2 07/27/2022 5:27 AM CDT LABORATORY Comment:eGFR calculated 2020 CKD-EPI equation. Blood STRUCTURE OF LEFT UPPER LIMB / Unknown Venipuncture / Unknown 07/27/2022 4:49 AM CDT 07/27/2022 4:53 AM CDT Andrea Medellin MD LAB - BLOOD ORDER CAMRYN Final Result LABORATORY [facility] Acute Care Lab [address] [facility] Lab (1st floor, no room number) [place] [address], [facility] [phone] * MA Screening Digital Bilateral (07/11/2022 7:38 [...] There is no radiographic evidence of malignancy. us Ellen Draper MD IMG MAMMOGRAPHY ORDERABLES Final Result * COLONOSCOPY (04/08/2021 7:32 AM SOLAR TECHNICIAN) [facility] Patient Name: Paulina Perkins ? Procedure Date: [...] continuously. The ?Olympus Adult Colonoscope, Model # CF-FJ914P, ?Endora # 225, SN # [id number] was introduced through ?the anus and advanced [...] malignant neoplasm of colon CPT copyright 2020 [employer]. All rights reserved. The codes documented in this report are preliminary and upon technical testing engineer review may be revised to meet current compliance requirements. Electronically signed by Bayrno Thornton MD __ Bayron Thornton MD 04/08/2021 8:11:15 AM I was physically present for the entire viewing portion of the exam. Bayron Thornton MD Number of Addenda: 0 Note Initiated On: 04/08/2021 7:32 AM MRN: [id number] Procedure Date: ? 04/08/2021 7:32:20 AM Scope Withdrawal Time: 0 hours 6 minutes 8 seconds Total Procedure Duration: 0 hours 20 minutes 8 seconds Estimated Blood Loss: ? Scope In: 7:45:28 AM Scope Out: 8:05:36 AM RADIOLOGY RESULTS 04/08/2021 7:32 AM SOLAR TECHNICIAN us Bayron Thornton MD PROCEDURES Final Result Performing Organization Address [facility] Co de Phone Number RADIOLOGY RESULTS * TSH (04/20/2019) TSH 0.223 0.270 - 4.20 mcU/mL [facility] Blood specimen (specimen) 04/20/2019 Patient Reported LAB - BLOOD ORDERABLES Final Re sult Performing Organization Address [facility] [place] [address], [facility] [phone] * Lipid Profile (04/20/2019) Cholesterol 143 90 - 200 mg/dL [facility] Triglycerides 108 40 - 197 mg/dL [facility] HDL Cholesterol 42 >=50 mg/dL [facility] LDL Cholesterol Calculated 79 <100 mg/dL [facility] Non HDL Cholesterol [facility] Blood specimen (specimen) 04/20/2019 Patient Reported LAB - BLOOD ORDERABLES Final Re sult Performing Organization Address [facility] de Phone Number [facility] [address] [place] [address], [facility] [phone] from Last 3 Months or Most Recently Relevant to Health Maintenance Insurance [facility]ALTHPARTBehance Advance Directives For more information, please contact: [phone] * Full Code (Latest Code Status on File) Date Activated Date Inactivated Comments 10/13/2023 1:15 PM 10/14/2023 12:10 PM All basic a nd advanced life-sustaining interventions are performed as appropriate Question Answer Comments Code status determined by: Discussion with patie nt/ legal decision maker Care Teams Transit Proof Machine Operator Relationship Specialty Start Date End Date Ellen Draper MD [facility] [address] [place] [address] PCP - General Family Medicine 03/25/21 Haylee Melgar MD SURGICAL [facility], [address] [place] [address] Assigned Surgical Provider 08/09/23
--- OUTSIDE RECORDS SUMMARY | 2023-12-13 17:07 | XMS_ITS | Encounter Summary ---
Author Organization [facility] Address [address] [place] [id number] Care Team Providers Care Consumer Experience Consultant Name Role Phone Ellen Draper MD Primary Care Provider [phone]- [phone] Haylee Melgar MD Unavailable [phone] Reason for Visit * Auth/Cert (Routine) Specialty Diagnoses / Procedures Referred By Brooke perkins Referred To Contact Surgery Diagnoses Toxic multinodular goiter Toxic multinodular goiter [E05.20] Procedures IA THYROIDECTOMY IA THYROIDECTOMY,MALIG,LTD NECK SURG Total Thyroidectomy [facility] [address] [place] [address] Phone: tel: fax: Referral ID Status Reason Start Date Expiration Date Visits Re quested Visits Authorized [id number] 1 1 Encounter Details Date Type Department Care Team (Late st Contact Info) Description 10/13/2023 7:40 AM CDT - 10/13/2023 10:10 AM CDT Surgery [facility] [address] [place] [address] Haylee Melgar MD [facility], [facility] [address] [facility] [address] [place] [address] Total thyroidectomy Surgery Details Date/Time Status Location OR Service Patient Class Case Class Case Type Trauma Case? 10/13/2023 7:40 AM Posted [facility] OR OR 05 General Same Day Surgery Elective Panel 1 Procedure LRB Anes Op Region Wound Class Comments Total thyroidectomy Bilateral General Neck I-Clean Surgeon Surgeon Role Service Panel Haylee Melgar MD Primary General 1 Abdirahman Fam PA-C Assisting Assistan t Authorization 1 Special Needs REQ 150 MIN documented in this encounter Social History Tobacco Use Types Packs/Day Years [...] Answer Date Recorded Do you have housing? 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 Gender Identity Not on file Sexual Orientation Not on file documented as of this encounter Last Filed Vital Signs Vital Sign Reading Time Taken Comments Blood Pressure 117/72 10/13/2023 6:12 AM CDT Pulse 75 10/13/2023 6:12 AM CDT Temperature 36.3 ??C (97.4 ??F) 10/13/2023 6:12 AM CD T Respiratory Rate 18 10/13/2023 6:12 AM CDT Oxygen Saturation 99% 10/13/2023 6:12 AM CDT Inhaled Oxygen Concentration - - Weight 112.9 kg (248 lb 14.4 oz) 10/13/2023 6:12 AM CDT Height 162.6 cm (5' 4.02) 10/13/2023 6:12 AM CD T Body Mass Index 42.7 10/13/2023 6:12 AM CDT documented in this encounter Medications at Time of Discharge aspirin 81 MG EC tablet Take 81 mg by mouth daily levothyroxine (SYNTHROID/LEVOTHR OID) 175 MCG tabletIndications: S/P total thyroidectomy Take 1 tablet (175 mcg) by mouth every morning (before breakfast). 60 tablet 1 10/15/2023 lisinopril (PRINIVIL,ZESTRIL) 10 MG tablet Take 10 mg by mouth daily. Melatonin 10 MG CAPS Take 10 mg by mouth daily metoprolol succinate ER (TOPROL XL) 50 MG 24 hr tablet 07/20/2023 Multiple Vitamin (ONE-A-DAY ESSENTIAL) TABS Take 1 tablet by mouth daily OZEMPIC, 0.25 OR 0.5 MG/DOSE, 2 MG/3ML pen Inject 0.5 mg Subcutaneous every 7 days 09/03/2022 pantoprazole (PROTONIX) 40 MG EC tablet Take 40 mg by mouth 07/04/2022 calcium carbonate (TUMS) 500 MG chewable tabletIndications: Calcium Supplement Take 2 tablets (1,000 mg) by mouth 2 times daily for 7 days, THEN 2 tablets (1,000 mg) daily for 7 days. 42 tablet 10/14/2023 10/28/19 24 acetaminophen (TYLENOL) 500 MG tabletIndications: S/P total thyroidectomy Take 2 tablets (1,000 mg) by mouth every 6 hours as needed for pain (mild pain). 10/14/2023 11/03/19 ibuprofen (ADVIL/MOTRIN) 200 MG tabletIndications: S/P total thyroidectomy Take 3 tablets (600 mg) by mouth every 6 hours as needed for other (inflammatory pain). 10/14/2023 11/03/19 oxyCODONE (ROXICODONE) 5 MG tabletIndications: S/P total thyroidectomy Take 1-2 tablets (5-10 mg) by mouth every 4 hours as needed for moderate pain. 8 tablet 10/14/2023 11/03/19 documented as of this encounter Progress Notes * Haylee Melgar MD - 10/14/2023 8:[address] [facility] General Surgery Progress Note Assessment and Plan: Assessment: POD#1 s/p Procedure(s): Total thyroidectomy Feeling well aside from sore throat with swallowing Calcium/PTH normal Plan: -Discharge to home today with levothyroxine, oxycodone, tylenol, ibuprofen, and calcium carbonate 1000 BID - Follow up in 2 weeks with hi - Follow up in [address] Ramirez (Endocrinology) Interval History: Feeling well aside from sore throat with swallowing and some fullness in her ears, No nausea, tolerating diet. Physical Exam: Blood pressure 123/58, pulse 66, temperature 97.5 ??F (36.4 ??C), temperature source Oral, resp. rate 12, height 1.626 m (5' 4.02), weight 112.9 kg (248 lb 14.4 oz), SpO2 95%. I/O last 3 completed shifts: In: 1800 [I.V.:1800] Out: - Neck: Soft, mild bruising, steri strip in place. Voice strong. Data: No results for input(s): WBC, HGB, HCT, MCV, PLT in the last 168 hours. Recent Labs Lab 10/14/23 0627 10/13/23 1759 10/13/23 1114 10/13/23 0608 GLC -- -- 137* 88 YARELY 9.0 8.9 -- -- Haylee Melgar MD documented in this encounter Miscellaneous Notes * Plan of Care - Anna Franco RN - 10/14/2023 10:04 AM CDT Pt to D/C to home. Pt provided with d/c instructions, including new medications, when medications were last given, and when to take them again. Pt also informed to f/u with surgery & PCP. Pt verbalized understanding of all d/c and f/u instructions. All questions were answered at this time. Copyof paperwork sent with pt. Medication/Scripts sent with pt. Sig other to provide transport. All personal belongings sent with pt. Problem: Adult Inpatient Plan of Care Goal: Plan of Care Review Description: The Plan of Care Review/Shift note should be completed every shift. The Outcome Evaluation is a brief statement about your assessment that the patient is improving, declining, or no change. This information will be displayed automatically on your shift note. Outcome: Adequate for Care Transition Goal: Patient-Specific Goal (Individualized) Description: You can add care plan individualizations to a care plan. Examples of Individualizationmight be: Parent requests to be called daily at 9am for status, I have a hard time hearing out of my right ear, or Do not touch me to wake me up as it startles me. Outcome: Adequate for Care Transition Goal: Absence of Hospital-Acquired Illness or Injury Outcome: Adequate for Care Transition Intervention: Identify and Manage Fall Risk Recent Flowsheet Documentation Taken 10/14/2023 0900 by Anna Franco RN Safety Promotion/Fall Prevention: activity supervised Intervention: Prevent and Manage VTE (Venous Thromboembolism) Risk Recent Flowsheet Documentation Taken 10/14/2023 0900 by Anna Franco RN VTE Prevention/Management: SCDs off (sequential compression devices) Intervention: Prevent Infection Recent Flowsheet Documentation Taken 10/14/2023 0900 by Anna Franco RN Infection Prevention: cohorting utilized Goal: Optimal Comfort and Wellbeing Outcome: Adequate for Care Transition Goal: Readiness for Transition of Care Outcome: Adequate for Care Transition * Plan of Care - Michelle Ha RN - 10/14/2023 5:25 AM CDT Pertinent assessments: Pt A&O, on RA. Ambulated in hallway, voiding without difficulty. Incision with steri strips, CDI, ice applied, PRN Tylenol x 1 given. Major Shift Events: uneventful Treatment Plan: pain management, Calcium checks q 12 hrs Problem: Adult Inpatient Plan of Care Goal: Plan of Care Review Description: The Plan of Care Review/Shift note should be completed every shift. The Outcome Evaluation is a brief statement about your assessment that the patient is improving, declining, or no change. This information will be displayed automatically on your shift note. Outcome: Progressing Flowsheets (Taken 10/14/2023 0524) Outcome Evaluation: minimal pain, ambulated in hallway, incision with steri strips CDI, monitoring calcium Plan of Care Reviewed With: patient Overall Patient Progress: improving Goal: Patient-Specific Goal (Individualized) Description: You can add care plan individualizations to a care plan. Examples of Individualizationmight be: Parent requests to be called daily at 9am for status, I have a hard time hearing out of my right ear, or Do not touch me to wake me up as it startles me. Outcome: Progressing Goal: Absence of Hospital-Acquired Illness or Injury Outcome: Progressing Intervention: Identify and Manage Fall Risk Recent Flowsheet Documentation Taken 10/13/20232153 by Michelle Ha RN Safety Promotion/Fall Prevention: clutter free environment maintained lighting adjusted nonskid shoes/slippers when out of bed safety round/check completed treat reversible contributory factors treat underlying cause Intervention: Prevent Skin Injury Recent Flowsheet Documentation Taken 10/13/20232153 by Michelle Ha RN Body Position: position changed independently supine, head elevated Taken 10/13/20232029 by Michelle Ha RN Body Position: position changed independently supine, head elevated Intervention: Prevent and Manage VTE (Venous Thromboembolism) Risk Recent Flowsheet Documentation Taken 10/13/20232153 by Michelle Ha RN VTE Prevention/Management: SCDs on (sequential compression devices) Intervention: Prevent Infection Recent Flowsheet Documentation Taken 10/13/20232153 by Michelle Ha LINDA Infection Prevention: cohorting utilized hand hygiene promoted rest/sleep promoted Goal: Optimal Comfort and Wellbeing Outcome: Progressing Goal: Readiness for Transition of Care Outcome: Progressing Goal Outcome Evaluation: Plan of Care Reviewed With: patient Overall Patient Progress: improvingOverall Patient Progress: improving Outcome Evaluation: minimal pain, ambulated in hallway, incision with steri strips CDI, monitoring calcium * Pharmacy-Admission Medication History - Deanna Henderson RPH - 10/13/2023 8:35 PM CDT Admission Medication History Medication history and patient interview completed by pre-admitting RN or post- op/MANAGER GALLERY. Med List Status: Nurse Complete Set By: Sixto Moore RN Wed Oct 07, 2023 9:47 AM Reviewed by pharmacist, including [facility] dispense records, [facility] Care Everywhere, and chart review. Deanna Henderson RPH WEB ANALYTICS SPECIALIST Med List Medication Sig Last Dose acetaminophen (TYLENOL) 325 MG tablet Take 2 tablets (650 mg) by mouth every 4 hours as needed for pain (mild pain). aspirin 81 MG EC tablet Take 81 mg by mouth daily 10/06/2023 lisinopril (PRINIVIL,ZESTRIL) 10 MG tablet Take 10 mg by mouth daily. 10/12/2023 at 2100 Melatonin 10 MG CAPS Take 10 mg by mouth daily 10/12/2023 at 2100 methimazole (TAPAZOLE) 5 MG tablet Take 5 mg by mouth Past Week metoprolol succinate ER (TOPROL XL) 50 MG 24 hr tablet 10/12/2023 at 2100 Multiple Vitamin (ONE-A-DAY ESSENTIAL) TABS Take 1 tablet by mouth daily Past Week OZEMPIC, 0.25 OR 0.5 MG/DOSE, 2 MG/3ML pen Inject 0.5 mg Subcutaneous every 7 days 09/28/23 pantoprazole (PROTONIX) 40 MG EC tablet Take 40 mg by mouth 10/13/2023 at 0300 * Plan of Care - Anna Franco RN - 10/13/2023 6:19 PM CDT Goal Outcome Evaluation: Plan of Care Reviewed With: patient Overall Patient Progress: improvingOverall Patient Progress: improving Outcome Evaluation: admission to unit from PACU End of Shift Summary For vital signs and complete assessments, please see documentation flowsheets. Pertinent assessments: A&O x4, flat affect. C/o 3/10 pain @ throat incision, managed with PRN tylenol & ice. Up ambulating SBA, sat in chair for a bit. Tolerating full liquid diet. Voiding fine. Reports BM yesterday. Major Shift Events: admission from PACU Treatment Plan: pain management Bedside Nurse: Anna Franco RN Problem: Adult Inpatient Plan of Care Goal: Plan of Care Review Description: The Plan of Care Review/Shift note should be completed every shift. The Outcome Evaluation is a brief statement about your assessment that the patient is improving, declining, or no change. This information will be displayed automatically on your shift note. Outcome: Progressing Flowsheets (Taken 10/13/20231817) Outcome Evaluation: admission to unit from PACU Plan of Care Reviewed With: patient Overall Patient Progress: improving Goal: Patient-Specific Goal (Individualized) Description: You can add care plan individualizations to a care plan. Examples of Individualizationmight be: Parent requests to be called daily at 9am for status, I have a hard time hearing out of my right ear, or Do not touch me to wake me up as it startles me. Outcome: Progressing Goal: Absence of Hospital-Acquired Illness or Injury Outcome: Progressing Intervention: Identify and Manage Fall Risk Recent Flowsheet Documentation Taken 10/13/2023 1700 by Anna Franco RN Safety Promotion/Fall Prevention: activity supervised Intervention: Prevent and Manage VTE (Venous Thromboembolism) Risk Recent Flowsheet Documentation Taken 10/13/2023 1700 by Anna Franco RN VTE Prevention/Management: SCDs on (sequential compression devices) Goal: Optimal Comfort and Wellbeing Outcome: Progressing Intervention: Monitor Pain and Promote Comfort Recent Flowsheet Documentation Taken 10/13/2023 1700 by Anna Franco RN Pain Management Interventions: declines cold applied Goal: Readiness for Transition of Care Outcome: Progressing * Care Plan - Marta Fierro RN - 10/13/2023 1:28 PM CDT Tolerated clear liquids well. * Op Note - Haylee Melgar MD - 10/13/2023 8:14 AM CDT General Surgery Operative Note PREOPERATIVE DIAGNOSIS: Toxic multinodular goiter [E05.20] POSTOPERATIVE DIAGNOSIS: Same PROCEDURE: Total Thyroidectomy ANESTHESIA: General. PREOPERATIVE MEDICATIONS: Ancef 2 gm SURGEON: Haylee Melgar MD PARKING INSPECTOR: Abdirahman Fam PA-C, - the physician assistant clinical nurse manager was medically necessary in providing adequate exposure in the operating field, maintaining hemostasis, cutting suture, clamping and ligatingblood vessels, and visualization of the anatomic structures throughout the surgical procedure. ESTIMATED BLOOD LOSS: 75 ml INDICATIONS: Paulina Perkins is a 63 year old female with toxic multinodular goiter. She has beeneuthyroid with the help of Methimazole. Given her large bilateral goiter, total thyroidectomy has been recommended for definitive treatment. Fine needle aspiration biopsies of her dominant nodules have been benign. She is here today for total thyroidectomy after thorough discussion of the risks andbenefits of the procedure. PROCEDURE: Paulina Perkins was placed supine on the operating room table and general endotracheal anesthesiawas induced. The patient was then placed in cervical extension and the neck was prepped and draped in our usual sterile fashion. After a confirmatory pause was performed, a cervical collar incision was made sharply and then carried down through the subcutaneous tissues and platysma with cautery. Superior and inferior flaps were raised. The strap muscles were divided in the midline. The strap muscles were elevated off the right thyroid lobe bluntly and middle thyroid vein was identified and divided with LigaSure. The superior pole was quite high in the neck and partially wrapped around the larynx. Superior pole vessels were dissected and divided with Ligasure allowing the thyroid lobe to be rotated medially. The superior parathyroid was identified and preserved on its vascular pedicle. A likely inferior parathyroid was identified within the thyothymic tract inferior to the thyroid. The inferior attachments/vessels to the thyroid were carefully ligated and divided and the right thyroid lobe was delivered up and out of the incision. We identified the recurrent laryngeal nerve in its typical location. Its function was confirmed using a nerve monitor. We followed the nerve cephalad, carefully the thyroid away from it. The thyroid was dissected off the trachea at the ligament of Junior. The thyroid isthmus was divided with a ligasure device. The superior pole was marked with a suture and the specimen was passed off to pathology. The function of the recurrent laryngeal nerve was checked and found to be excellent, so we proceeded to the contralateral thyroid lobe. The strap muscles were elevated off the left thyroid lobe bluntly and middle thyroid vein was identified and divided with LigaSure. The superior pole vessels were dissected and divided with Ligasure allowing the thyroid lobe to be rotated medially. The superior parathyroid was identified and preserved on its vascular pedicle. The inferior parathyroid was identified on the thyroid capsule and was carefully dissected off. Inferior attachments to the thyroid were carefully ligated and divided and the left thyroid lob was delivered up and out of the incision. We identified the recurrent laryngealnerve coursing over the esophagus. Its function was confirmed using a nerve monitor. With the nervein view, we ligated and divided the inferior pole vessels. We followed the nerve cephalad, carefully the thyroid away from it. The thyroid was dissected off the trachea at the ligament of Junior. The superior pole was marked with a suture and the specimen was passed off to pathology. The bilateral central neck lymph nodes were inspected and found to be grossly normal. At conclusionof the procedure, there was excellent recurrent laryngeal nerve signal bilaterally. We irrigated with saline and ensured hemostasis with valsalva. Fibrillar hemostatic agent was placed in the operative bed The midline fascia and platysma were closed with interrupted 3-0 vicryl suture and the skin was closed with running 4-0 subcuticular Monocryl. A dry sterile dressing was placed and the patient was transferred to recovery in good condition. INTRAOPERATIVE FINDINGS: 1. Thyroid grossly enlarged, nodular, and soft. 2. Bilateral recurrent laryngeal nerves seen and preserved. Function confirmed by nerve monitor. 3. Right superior and inferior parathyroid glands seen and preserved. 4. Left superior and inferior parathyroid glands seen and preserved. Specimens: ID Type Source Tests Collected by Time Destination 1 : right lobe of thyroid, suture lemus superior pole Tissue Thyroid, Right SURGICAL PATHOLOGY Haylee Ledesma MD 10/13/2023 9:28 AM 2 : Left lobe of thyorid - stitch lemus superior pole Tissue Thyroid, left SURGICAL PATHOLOGY EXAM Haylee Melgar MD 10/13/2023 10:05 AM Haylee Melgar MD documented in this encounter Plan of Treatment Not on file documented as of this encounter Procedures Procedure Name Priority Date/Time Associated Diagnosis Comments PARATHYROID HORMONE INTACT Timed 10/14/2023 6:27 AM CDT CALCIUM Timed 10/14/2023 6:27 AM CDT PARATHYROID HORMONE INTACT Timed 10/13/2023 5:59 PM CDT CALCIUM Timed 10/13/2023 5:59 PM CDT GLUCOSE BY METER Routine 10/13/2023 11:1 4 AM CDT SURGICAL PATHOLOGY EXAM Routine 10/13/2023 9:28 AM CDT THYROIDECTOMY, TOTAL 10/13/2023 7:38 AM CDT Toxic multinodular goiter Special Needs REQ 150 MIN GLUCOSE BY METER Routine 10/13/2023 6:08 AM CDT documented in this encounter Results * Parathyroid Hormone Intact (10/14/2023 6:27 AM CDT) Parathyroid Hormone Intact 34 15 - 65 pg/mL 10/14/2023 7:25 AM CDT LABORATORY Blood STRUCTURE OF RIGHT HAND / Unknown Venipuncture / Unknown 10/14/2023 6:27 AM CDT 10/14/2023 7:00 AM CDT Narrative LABORATORY - 10/14/2023 7:25 AM CDT This result was obtained with the [employer] PTH STAT assay. This reference range differs from PTH assays used in other [facility] laboratories. us Haylee Melgar MD LAB - BLOOD ORDERABLES Fin al Result Performing Organization Address City/State/[facility] Co de Phone Number [facility] Lab [address] Lab (1st floor, no room number) [place] [address] * Calcium (10/14/2023 6:27 AM CDT) Calcium 9.0 8.8 - 10.4 mg/dL 10/14/2023 [...] ORDERABLES Fin al Result Performing Organization Address [facility] de Phone Number [facility] [address] Lab (1st floor, no room number) [place] [phone] * Parathyroid Hormone Intact (10/13/2023 5:59 PM CDT) Parathyroid Hormone Intact 36 15 - 65 pg/mL 10/13/2023 6:35 PM CDT LABORATORY Blood STRUCTURE OF RIGHT UPPER LIMB / Unknown Venipuncture / Unknown 10/13/2023 5:59 PM CDT 10/13/2023 6:06 PM CDT Narrative LABORATORY - 10/13/2023 6:35 PM CDT This result was obtained with the [employer] PTH STAT assay. This reference range differs from PTH assays used in other [facility] laboratories. Haylee Melgar MD LAB - BLOOD ORDERABLES Fin al Result Performing Organization Address [facility]/ZIP Co de Phone Number [facility] Lab [address] Lab (1st floor, no room number) [address] * Calcium (10/13/2023 5:59 PM CDT) Calcium 8.9 8.8 - 10.4 mg/dL 10/13/2023 6:32 PM CDT LABORATORY Comment:Reference intervals for this test were updated on 09/01/2023 to reflect our healthy population more accurately. There may be differences in the flagging of prior results with similar values performed with this method. Those prior results can be interpreted in the context of the updated reference intervals. Blood STRUCTURE OF RIGHT UPPER LIMB / Unknown Venipuncture / Unknown 10/13/2023 5:59 PM CDT 10/13/2023 6:06 PM CDT Haylee Melgar MD LAB - BLOOD ORDERABLES Fin al Result Performing Organization Address City/[facility]/ZIP Co de Phone Number LABORATORY [facility] Acute Care Lab [address] Lab (1st floor, no room number) [address] * (ABNORMAL) Glucose by meter (10/13/2023 11:14 AM CDT) GLUCOSE BY METER POCT 137(H) 70 - 99 mg/dL 10/13/2023 11:22 AM CDT LABORATORY POC Blood, Capillary BLOOD SPECIMEN / Unknown 10/13/2023 11:14 AM CDT 10/13/2023 11:22 AM CDT Haylee Melgar MD LAB - BEAKER POCT Final Re sult LABORATORY POC [facility] Care Lab [address] Lab (1st floor, no room number) [address] * Surgical Pathology Exam (10/13/2023 9:28 AM CDT) Case Report Surgical Pathology Report ? Case: [id number] ? Authorizing Provider: ??Haylee Melgar MD ?Collected: ? 10/13/2023 09:28 AM ? Ordering Location: ? [facility] ?? Received: ?10/13/2023 10:51 AM ? Main [...] surfaces. No tumor or calcifications are identified. Will Call Order Clerk sections submitted as follows: A1-superior lobe A2-middle [...] surfaces. No tumor or calcifications are identified. Will Call Order Clerk sections submitted as follows: B1-superior lobe B2-middle lobe B3-lower lobe B4-Isthmus to include margin (JASPAL Benoit10/13/2023 12:21 PM 10/14/2023 12:06 PM CDT LABORATORY Microscopic Description Microscopic performed 10/14/2023 12:06 PM CDT LABORATORY Performing Labs The technical component of this testing was completed at [facility]. Stain controls for all stains [...] 10:05 AM CDT 10/13/2023 10:51 AM CDT Haylee SCHMIDT - JOSE AP Final Resu lt LABORATORY [facility] Lab [address] 1st floor, [address] [place] [address], [facility] [phone] LABORATORY [facility] Lab [address] Lab (1st floor, no room number) [place] [address], [facility] * Glucose by meter (10/13/2023 6:08 AM CDT) GLUCOSE BY METER POCT 88 70 - 99 mg/dL 10/13/2023 6:52 AM CDT LABORATORY POC Blood, Capillary BLOOD SPECIMEN / Unknown 10/13/2023 6:08 AM CDT 10/13/2023 6:52 AM CDT Haylee SCHMIDT - BEAKER POCT Final Re sult LABORATORY POC [facility] Lab [address] Lab (1st floor, no room number) [place] [address], [facility] documented in this encounter Visit Diagnoses Diagnosis S/P total thyroidectomy- Primary Other postprocedural status Toxic multinodular goiter Toxic multinodular goiter without mention of thyrotoxic crisis or storm documented in this encounter Administered Medications Inactive Administered Medications - up to 3 most recent administrations Medication Order MAR Action Action Date Dose Rate Site acetaminophen (TYLENOL) tablet 650 mg 650 mg, Oral, EVERY 6 HOURS PRN, mild pain, Starting on Thu10/13/23 at 1300, Do not use if patient has an active opioid/acetaminophen analgesic order for pain. Maximum acetaminophen dose from all sources = 75 mg/kg/day not to exceed 4 grams/day. $Given 10/14/2023 3:51 AM CDT 650 mg $Given 10/13/2023 1:06 PM CDT 650 mg acetaminophen (TYLENOL) tablet 975 mg 975 mg, Oral, ONCE, On Thu10/13/23 at 0700, For 1 dose, Administer only if patient has not had acetaminophen in the last 6 hours Maximum acetaminophen dose from all sources = 75 mg/kg/day not to exceed 4 grams/day., Pre-procedure $Given 10/13/2023 7:01 AM CDT 975 mg BUPivacaine (MARCAINE) 0.5% injection MDV PRN, Starting on Thu10/13/23 at 1019, Intra-procedure $Given 10/13/2023 10:19 AM CDT 10 mLs Operative Site/Surgi yarely Site calcium carbonate (TUMS) chewable tablet 1,000 mg 1,000 mg, Oral, 3 TIMES DAILY, First dose on Thu10/13/23 at 1400, Indications: Calcium SupplementIndications:Calci um Supplement $Given 10/14/2023 8:47 AM CDT 1,000 mg $Given 10/13/2023 8:32 PM CDT 1,000 mg $Given 10/13/2023 4:25 PM CDT 1,000 mg HYDROmorphone (DILAUDID) injection 0.2 mg 0.2 mg, Intravenous, EVERY 2 HOURS PRN, moderate pain, Starting on Thu10/13/23 at 1315, IF patient unable to take oral pain medication or pain not controlled with oral analgesics. Hold IV PRN opioid dose for analgesic side effects. Notify provider to assess for uncontrolled pain or analgesic side effects. HYDROmorphone (DILAUDID) injection 0.4 mg 0.4 mg, Intravenous, EVERY 2 HOURS PRN, severe pain, Starting on Thu10/13/23 at 1315, IF patient unable to take oral pain medication or pain not controlled with oral analgesics. Hold IV PRN opioid dose for analgesic side effects. Notify provider to assess for uncontrolled pain or analgesic side effects. ketorolac (TORADOL) injection 15 mg 15 mg, Intravenous, ONCE, On Thu10/13/23 at 1200, For 1 dose, Can cause pain on injection. If ordered intravenously (IV) : administer through a running maintenance fluid over 1 minute followed by a flush. If patient complains of pain on injection, may dilute 15-30 mg in 5 mL and push over 1 to 2 minutes., PACU $Given 10/13/2023 11:35 AM CDT 15 mg lactated ringers infusion at 10 mL/hr, Intravenous, CONTINUOUS, IF patient NOT on dialysis., Pre-procedure, Starting on Thu10/13/23 at 0700, Until Thu10/13/23 at 1045 $New Bag 10/13/2023 6:41 AM CDT 10 mL/hr lactated ringers infusion at 100 mL/hr, Intravenous, CONTINUOUS, Continue until IV catheter is weaned, PACU, Starting on Thu10/13/23 at 1100, Until Thu10/13/23 at 1316 Rate/Dose Verify 10/13/2023 11:00 AM CDT 100 mL/hr levothyroxine (SYNTHROID/LEVOTHROID) tablet 175 mcg 175 mcg, Oral, EVERY MORNING BEFORE BREAKFAST, First dose on Thu10/14/23 at 0730, Separate oral administration of iron- or calcium-containing products and levothyroxine by at least 4 hours. $Given 10/14/2023 6:38 AM CDT 175 mcg lisinopril (ZESTRIL) tablet 10 mg 10 mg, Oral, DAILY, First dose on Thu10/13/23 at 2100 $Given 10/13/2023 8:33 PM CDT 10 mg metoprolol succinate ER (TOPROL XL) 24 hr tablet 50 mg 50 mg, Oral, DAILY, First dose on Thu10/13/23 at 2100, DO NOT CRUSH. Tablet may be split in half along score line. $Given 10/13/2023 8:32 PM CDT 50 mg naloxone (NARCAN) injection 0.2 mg 0.2 mg, Intravenous, EVERY 2 MIN PRN, opioid reversal, Starting on Thu10/13/23 at 1536, Administer intravenous route when available and notify provider when administered. For unintended sedation or respiratory depression if all of the below criteria are met: ~ respiratory rate LESS than or EQUAL to 8. ~SaO2 less than 92% and or/end-tidal CO2 is greater than 50. ~ the patient is receiving an opioid, has unintended sedations assessed as RASS (-3), and is currently not on mechanical ventilation. RASS scale moderate (-3) is movement or eye opening to voice but no eye contact. Patient Monitoring Once the patient has demonstrated a response to the naloxone, continue to monitor respiratory rate, depth, oxygen saturation and end-tidal CO2 (if available) every 15 minutes x 2, then every 30 minutes x 2, then every 1 hour x 1 after each naloxone dose. Consider transfer to ICU if patient respiratory parameters have not improved after 4 naloxone doses. naloxone (NARCAN) injection 0.2 mg 0.2 mg, Intramuscular, EVERY 2 MIN PRN, opioid reversal, Starting on Thu10/13/23 at 1536, Administer intramuscular if an intravenous route is not available and notify provider when administered. For unintended sedation or respiratory depression if all of the below criteria are met: ~ respiratory rate LESS than or EQUAL to 8. ~SaO2 less than 92% and or/end-tidal CO2 is greater than 50. ~ the patient is receiving an opioid, has unintended sedations assessed as RASS (-3), and is currently not on mechanical ventilation. RASS scale moderate (-3) is movement or eye opening to voice but no eye contact. Patient Monitoring Once the patient has demonstrated a response to the naloxone, continue to monitor respiratory rate, depth, oxygen saturation and end-tidal CO2 (if available) every 15 minutes x 2, then every 30 minutes x 2, then every 1 hour x 1 after each naloxone dose. Consider transfer to ICU if patient respiratory parameters have not improved after 4 naloxone doses. naloxone (NARCAN) injection 0.4 mg 0.4 mg, Intravenous, EVERY 2 MIN PRN, opioid reversal, Starting on Thu10/13/23 at 1536, Administer intravenous route when available and notify provider when administered. For unintended sedation or respiratory depression if all of the below criteria are met: ~ respiratory rate LESS than or EQUAL to 8. ~ SaO2 less than 92% and or/end-tidal CO2 is greater than 50. ~ the patient is receiving an opioid, has unintended sedation assessed as RASS (-4) or (-5) and patient is currently not on mechanical ventilation. RASS scale (-4) is deep sedation with no response to voice but movement or eye opening to physical stimulation. RASS scale (-5) is unarousable. Patient Monitoring Once the patient has demonstrated a response to the naloxone, continue to monitor respiratory rate, depth, oxygen saturation and end-tidal CO2 (if available) every 15 minutes x 2, then every 30 minutes x 2, then every 1 hour x 1 after each naloxone dose. Consider transfer to ICU if patient respiratory parameters have not improved after 4 naloxone doses. naloxone (NARCAN) injection 0.4 mg 0.4 mg, Intramuscular, EVERY 2 MIN PRN, opioid reversal, Starting on Thu10/13/23 at 1536, Administer intramuscular if an intravenous route is not available and notify provider when administered. For unintended sedation or respiratory depression if all of the below criteria are met: ~ respiratory rate LESS than or EQUAL to 8. ~ SaO2 less than 92% and or/end-tidal CO2 is greater than 50. ~ the patient is receiving an opioid, has unintended sedation assessed as RASS (-4) or (-5) and patient is currently not on mechanical ventilation. RASS scale (-4) is deep sedation with no response to voice but movement or eye opening to physical stimulation. RASS scale (-5) is unarousable. Patient Monitoring Once the patient has demonstrated a response to the naloxone, continue to monitor respiratory rate, depth, oxygen saturation and end-tidal CO2 (if available) every 15 minutes x 2, then every 30 minutes x 2, then every 1 hour x 1 after each naloxone dose. Consider transfer to ICU if patient respiratory parameters have not improved after 4 naloxone doses. ondansetron (ZOFRAN ODT) ODT tab 4 mg 4 mg, Oral, EVERY 6 HOURS PRN, nausea, vomiting, Starting on Thu10/13/23 at 1315, This is Step 1 of nausea and vomiting management. If nausea not resolved in 15 minutes, go to Step 2 prochlorperazine (COMPAZINE). Do not push through foil backing. Peel back foil and gently remove. Place on tongue immediately. Administration with liquid unnecessary With dry hands, peel back foil backing and gently remove tablet. Do not push oral disintegrating tablet through foil backing. Administer immediately on tongue and oral disintegrating tablet dissolves in seconds, then swallow with saliva. Liquid not required. ondansetron (ZOFRAN) injection 4 mg 4 mg, Intravenous, EVERY 6 HOURS PRN, nausea, vomiting, Administer over 2-5 Minutes, Starting on Thu10/13/23 at 1315, This is Step 1 of nausea and vomiting management. If nausea not resolved in 15 minutes, go to Step 2 prochlorperazine (COMPAZINE). oxyCODONE (ROXICODONE) tablet 10 mg 10 mg, Oral, EVERY 4 HOURS PRN, severe pain, Starting on Thu10/13/23 at 1300, Hold oral PRN dose for analgesic side effects. Notify provider to assess for uncontrolled pain or analgesic side effects. Hold while on IV GRAPHICS EDIT TECHNICIAN or with regular IV opioid dosing. oxyCODONE (ROXICODONE) tablet 5 mg 5 mg, Oral, EVERY 4 HOURS PRN, moderate pain, Starting on Thu10/13/23 at 1300, Hold oral PRN dose for analgesic side effects. Notify provider to assess for uncontrolled pain or analgesic side effects. Hold while on IV GRAPHICS EDIT TECHNICIAN or with regular IV opioid dosing. $Given 10/13/2023 6:46 PM CDT 5 mg pantoprazole (PROTONIX) EC tablet 40 mg 40 mg, Oral, EVERY MORNING BEFORE BREAKFAST, First dose on Thu10/14/23 at 0730, DO NOT CRUSH. $Given 10/14/2023 6:38 AM CDT 40 mg sodium chloride (PF) 0.9% PF flush 3 mL 3 mL, Intracatheter, EVERY 8 HOURS, First dose on Thu10/13/23 at 0700, to lock peripheral IV dormant line, Pre-procedure $Given 10/13/2023 6:41 AM CDT 3 mLs sodium chloride (PF) 0.9% PF flush 3 mL 3 mL, Intracatheter, EVERY 8 HOURS, First dose on Thu10/13/23 at 1330, to lock peripheral IV dormant line $Given 10/14/2023 3:33 AM CDT 3 mLs $Given 10/13/2023 4:26 PM CDT 3 mLs sodium chloride 0.9% (bottle) irrigation PRN, Starting on Thu10/13/23 at 1017, Intra-procedure $Given 10/13/2023 10:17 AM CDT 750 mLs Operative Site/Surgi yarely Site documented in this encounter Active and Recently Administered Medications Times are shown in CDT. Scheduled Medication Order 10/12/2023 10/13/2023 10/14/2023 acetaminophen (TYLENOL) tablet 975 mg (COMPLETED) 975 mg, Oral, ONCE, On Thu10/13/23 at 0700, For 1 dose, Administer only if patient has not had acetaminophen in the last 6 hours Maximum acetaminophen dose from all sources = 75 mg/kg/day not to exceed 4 grams/day., Pre-procedure 0701 ($Given - Provider: Apolonia Padron, LINDA) calcium carbonate (TUMS) chewable tablet 1,000 mg 1,000 mg, Oral, 3 TIMES DAILY, First dose on Thu10/13/23 at 1400, Indications: Calcium Supplement 1625 ($Given - Provider: Anna Franco, LINDA)2032 ($Given - Provider: Michelle Ha, LINDA) 0847 ($Given - Provider: Anna Franco, LINDA) ceFAZolin Sodium (ANCEF) injection 2 g (COMPLETED) Routine, 2 g, Intravenous, PRE-OP/PRE-PROCEDURE, Starting on Thu10/13/23 at 0637, For 1 dose, Give first dose within 1 hour PRIOR to incision. If patient weight is greater than or equal to 120 kg increase dose to 3 g., Indications: Perioperative Pharmacoprophylaxis, Pre-procedure 0739 ($Given - Provider: Sukh Mcfadden APRN [employer] LOAN REVIEWER) ketorolac (TORADOL) injection 15 mg (COMPLETED) 15 mg, Intravenous, ONCE, On Thu10/13/23 at 1200, For 1 dose, Can cause pain on injection. If ordered intravenously (IV) : administer through a running maintenance fluid over 1 minute followed by a flush. If patient complains of pain on injection, may dilute 15-30 mg in 5 mL and push over 1 to 2 minutes., PACU 1135 ($Given - Provider: Rylie Mckeon RN) levothyroxine (SYNTHROID/LEVOTHROID) tablet 175 mcg 175 mcg, Oral, EVERY MORNING BEFORE BREAKFAST, First dose on Thu10/14/23 at 0730, Separate oral administration of iron- or calcium-containing products and levothyroxine by at least 4 hours. 0638 ($Given - Provider: Michelle Ha, LINDA) lisinopril (ZESTRIL) tablet 10 mg 10 mg, Oral, DAILY, First dose on Thu10/13/23 at 2100 2032 ($Given - Provider: Michelle Ha, RN) metoprolol succinate ER (TOPROL XL) 24 hr tablet 50 mg 50 mg, Oral, DAILY, First dose on Thu10/13/23 at 2100, DO NOT CRUSH. Tablet may be split in half along score line. 2031 ($Given - Provider: Michelle Ha, LINDA) pantoprazole (PROTONIX) EC tablet 40 mg 40 mg, Oral, EVERY MORNING BEFORE BREAKFAST, First dose on Thu10/14/23 at 0730, DO NOT CRUSH. 0638 ($Given - Provider: Michelle Ha RN) sodium chloride (PF) 0.9% PF flush 3 mL (CANCELED) 3 mL, Intracatheter, EVERY 8 HOURS, First dose on Thu10/13/23 at 0700, to lock peripheral IV dormant line, Pre-procedure 0641 ($Given - Provider: Apolonia Padron RN) sodium chloride (PF) 0.9% PF flush 3 mL 3 mL, Intracatheter, EVERY 8 HOURS, First dose on Thu10/13/23 at 1330, to lock peripheral IV dormant line 1626 ($Given - Provider: Anna Franco, LINDA)203 (Canceled Entry - Provider: Michelle Ha RN) 0333 ($Given - Provider: Jodee Miller RN)0847 (Not Given - Provider: Anna Franco RN - Reason: Other) Continuous Medication Order 10/12/2023 10/13/2023 10/14/2023 lactated ringers infusion (CANCELED) at 10 mL/hr, Intravenous, CONTINUOUS, IF patient NOT on dialysis., Pre-procedure, Starting on Thu10/13/23 at 0700, Until Thu10/13/23 at 1045 0641 ($New Bag - Provider: Jennifer Padron, RN)1337 (Stopped - Provider: Marta Fierro RN) lactated ringers infusion (CANCELED) at 100 mL/hr, Intravenous, CONTINUOUS, Continue until IV catheter is weaned, PACU, Starting on Thu10/13/23 at 1100, Until Thu10/13/23 at 1316 1100 (Rate/Dose Verify - Provider: Rylie Mckeon RN) PRN Medication Order 10/12/2023 10/13/2023 10/14/2023 acetaminophen (TYLENOL) tablet 650 mg 650 mg, Oral, EVERY 6 HOURS PRN, mild pain, Starting on Thu10/13/23 at 1300, Do not use if patient has an active opioid/acetaminophen analgesic order for pain. Maximum acetaminophen dose from all sources = 75 mg/kg/day not to exceed 4 grams/day. 1306 ($Given - Provider: Keyla Altamirano RN) 0351 ($Given - Provider: Michelle Ha RN) BUPivacaine (MARCAINE) 0.5% injection MDV (CANCELED) PRN, Starting on Thu10/13/23 at 1019, Intra-procedure 1019 ($Given - Provider: Haylee Melgar MD) HYDROmorphone (DILAUDID) injection 0.2 mg(Linked Group 1) 0.2 mg, Intravenous, EVERY 2 HOURS PRN, moderate pain, Starting on Thu10/13/23 at 1315, IF patient unable to take oral pain medication or pain not controlled with oral analgesics. Hold IV PRN opioid dose for analgesic side effects. Notify provider to assess for uncontrolled pain or analgesic side effects. HYDROmorphone (DILAUDID) injection 0.4 mg(Linked Group 1) 0.4 mg, Intravenous, EVERY 2 HOURS PRN, severe pain, Starting on Thu10/13/23 at 1315, IF patient unable to take oral pain medication or pain not controlled with oral analgesics. Hold IV PRN opioid dose for analgesic side effects. Notify provider to assess for uncontrolled pain or analgesic side effects. ibuprofen (ADVIL/MOTRIN) tablet 600 mg 600 mg, Oral, EVERY 6 HOURS PRN, other, inflammatory pain, Starting on Thu10/13/23 at 1315, Start when ketorolac (TORADOL) is discontinued. Give with food. lidocaine (LMX4) cream Topical, EVERY 1 HOUR PRN, pain, with VAD insertion, Starting on Thu10/13/23 at 1315, Apply at least 30 minutes prior to VAD insertion in divided doses as needed for size of site for insertion. MAX Dose: 2.5 g (?? of 5 g tube) Do NOT give if patient has a history of allergy to any local anesthetic or any giselle product. Do NOT use both lidocaine intradermal/subcutaneous injection and the lidocaine cream on the same site. lidocaine 1 % 0.1-1 mL 0.1-1 mL, Other, EVERY 1 HOUR PRN, mild pain with VAD insertion, Starting on Thu10/13/23 at 1315, MAX dose 1 mL subcutaneous OR intradermal along the side of the vein in divided doses as needed for VAD insertion. Do NOT give if patient has a history of allergy to any local anesthetic or any giselle product. Do NOT use both lidocaine intradermal/subcutaneous injection and the lidocaine cream on the same site. naloxone (NARCAN) injection 0.2 mg(Linked Group 2) 0.2 mg, Intravenous, EVERY 2 MIN PRN, opioid reversal, Starting on Thu10/13/23 at 1536, Administer intravenous route when available and notify provider when administered. For unintended sedation or respiratory depression if all of the below criteria are met: ~ respiratory rate LESS than or EQUAL to 8. ~SaO2 less than 92% and or/end-tidal CO2 is greater than 50. ~ the patient is receiving an opioid, has unintended sedations assessed as RASS (-3), and is currently not on mechanical ventilation. RASS scale moderate (-3) is movement or eye opening to voice but no eye contact. Patient Monitoring Once the patient has demonstrated a response to the naloxone, continue to monitor respiratory rate, depth, oxygen saturation and end-tidal CO2 (if available) every 15 minutes x 2, then every 30 minutes x 2, then every 1 hour x 1 after each naloxone dose. Consider transfer to ICU if patient respiratory parameters have not improved after 4 naloxone doses. naloxone (NARCAN) injection 0.2 mg(Linked Group 2) 0.2 mg, Intramuscular, EVERY 2 MIN PRN, opioid reversal, Starting on Thu10/13/23 at 1536, Administer intramuscular if an intravenous route is not available and notify provider when administered. For unintended sedation or respiratory depression if all of the below criteria are met: ~ respiratory rate LESS than or EQUAL to 8. ~SaO2 less than 92% and or/end-tidal CO2 is greater than 50. ~ the patient is receiving an opioid, has unintended sedations assessed as RASS (-3), and is currently not on mechanical ventilation. RASS scale moderate (-3) is movement or eye opening to voice but no eye contact. Patient Monitoring Once the patient has demonstrated a response to the naloxone, continue to monitor respiratory rate, depth, oxygen saturation and end-tidal CO2 (if available) every 15 minutes x 2, then every 30 minutes x 2, then every 1 hour x 1 after each naloxone dose. Consider transfer to ICU if patient respiratory parameters have not improved after 4 naloxone doses. naloxone (NARCAN) injection 0.4 mg(Linked Group 2) 0.4 mg, Intravenous, EVERY 2 MIN PRN, opioid reversal, Starting on Thu10/13/23 at 1536, Administer intravenous route when available and notify provider when administered. For unintended sedation or respiratory depression if all of the below criteria are met: ~ respiratory rate LESS than or EQUAL to 8. ~ SaO2 less than 92% and or/end-tidal CO2 is greater than 50. ~ the patient is receiving an opioid, has unintended sedation assessed as RASS (-4) or (-5) and patient is currently not on mechanical ventilation. RASS scale (-4) is deep sedation with no response to voice but movement or eye opening to physical stimulation. RASS scale (-5) is unarousable. Patient Monitoring Once the patient has demonstrated a response to the naloxone, continue to monitor respiratory rate, depth, oxygen saturation and end-tidal CO2 (if available) every 15 minutes x 2, then every 30 minutes x 2, then every 1 hour x 1 after each naloxone dose. Consider transfer to ICU if patient respiratory parameters have not improved after 4 naloxone doses. naloxone (NARCAN) injection 0.4 mg(Linked Group 2) 0.4 mg, Intramuscular, EVERY 2 MIN PRN, opioid reversal, Starting on Thu10/13/23 at 1536, Administer intramuscular if an intravenous route is not available and notify provider when administered. For unintended sedation or respiratory depression if all of the below criteria are met: ~ respiratory rate LESS than or EQUAL to 8. ~ SaO2 less than 92% and or/end-tidal CO2 is greater than 50. ~ the patient is receiving an opioid, has unintended sedation assessed as RASS (-4) or (-5) and patient is currently not on mechanical ventilation. RASS scale (-4) is deep sedation with no response to voice but movement or eye opening to physical stimulation. RASS scale (-5) is unarousable. Patient Monitoring Once the patient has demonstrated a response to the naloxone, continue to monitor respiratory rate, depth, oxygen saturation and end-tidal CO2 (if available) every 15 minutes x 2, then every 30 minutes x 2, then every 1 hour x 1 after each naloxone dose. Consider transfer to ICU if patient respiratory parameters have not improved after 4 naloxone doses. ondansetron (ZOFRAN ODT) ODT tab 4 mg(Linked Group 3) 4 mg, Oral, EVERY 6 HOURS PRN, nausea, vomiting, Starting on Thu10/13/23 at 1315, This is Step 1 of nausea and vomiting management. If nausea not resolved in 15 minutes, go to Step 2 prochlorperazine (COMPAZINE). Do not push through foil backing. Peel back foil and gently remove. Place on tongue immediately. Administration with liquid unnecessary With dry hands, peel back foil backing and gently remove tablet. Do not push oral disintegrating tablet through foil backing. Administer immediately on tongue and oral disintegrating tablet dissolves in seconds, then swallow with saliva. Liquid not required. ondansetron (ZOFRAN) injection 4 mg(Linked Group 3) 4 mg, Intravenous, EVERY 6 HOURS PRN, nausea, vomiting, Administer over 2-5 Minutes, Starting on Thu10/13/23 at 1315, This is Step 1 of nausea and vomiting management. If nausea not resolved in 15 minutes, go to Step 2 prochlorperazine (COMPAZINE). oxyCODONE (ROXICODONE) tablet 10 mg(Linked Group 4) 10 mg, Oral, EVERY 4 HOURS PRN, severe pain, Starting on Thu10/13/23 at 1300, Hold oral PRN dose for analgesic side effects. Notify provider to assess for uncontrolled pain or analgesic side effects. Hold while on IV GRAPHICS EDIT TECHNICIAN or with regular IV opioid dosing. 184 (See Alternative - Provider: Anna Franco RN) oxyCODONE (ROXICODONE) tablet 5 mg(Linked Group 4) 5 mg, Oral, EVERY 4 HOURS PRN, moderate pain, Starting on Thu10/13/23 at 1300, Hold oral PRN dose for analgesic side effects. Notify provider to assess for uncontrolled pain or analgesic side effects. Hold while on IV GRAPHICS EDIT TECHNICIAN or with regular IV opioid dosing. 1846 ($Given - Provider: Anna Franco RN) sodium chloride (PF) 0.9% PF flush 3 mL 3 mL, Intracatheter, EVERY 1 MIN PRN, line flush, other, to ensure patency or to lock dormant line, Starting on Thu10/13/23 at 1315 sodium chloride 0.9% (bottle) irrigation (CANCELED) PRN, Starting on Thu10/13/23 at 1017, Intra-procedure 1017 ($Given - Provider: Haylee Melgar MD) Linked Groups Order Group 1: HYDROmorphone (DILAUDID) injection 0.2 mgJump to med 0.2 mg, Intravenous, EVERY 2 HOURS PRN, moderate pain, Starting on Thu10/13/23 at 1315, IF patient unable to take oral pain medication or pain not controlled with oral analgesics. Hold IV PRN opioid dose for analgesic side effects. Notify provider to assess for uncontrolled pain or analgesic side effects. Or HYDROmorphone (DILAUDID) injection 0.4 mgJump to med 0.4 mg, Intravenous, EVERY 2 HOURS PRN, severe pain, Starting on Thu10/13/23 at 1315, IF patient unable to take oral pain medication or pain not controlled with oral analgesics. Hold IV PRN opioid dose for analgesic side effects. Notify provider to assess for uncontrolled pain or analgesic side effects. Group 2: naloxone (NARCAN) injection 0.2 mgJump to med 0.2 mg, Intravenous, EVERY 2 MIN PRN, opioid reversal, Starting on Thu10/13/23 at 1536, Administer intravenous route when available and notify provider when administered. For unintended sedation or respiratory depression if all of the below criteria are met: ~ respiratory rate LESS than or EQUAL to 8. ~SaO2 less than 92% and or/end-tidal CO2 is greater than 50. ~ the patient is receiving an opioid, has unintended sedations assessed as RASS (-3), and is currently not on mechanical ventilation. RASS scale moderate (-3) is movement or eye opening to voice but no eye contact. Patient Monitoring Once the patient has demonstrated a response to the naloxone, continue to monitor respiratory rate, depth, oxygen saturation and end-tidal CO2 (if available) every 15 minutes x 2, then every 30 minutes x 2, then every 1 hour x 1 after each naloxone dose. Consider transfer to ICU if patient respiratory parameters have not improved after 4 naloxone doses. Or naloxone (NARCAN) injection 0.4 mgJump to med 0.4 mg, Intravenous, EVERY 2 MIN PRN, opioid reversal, Starting on Thu10/13/23 at 1536, Administer intravenous route when available and notify provider when administered. For unintended sedation or respiratory depression if all of the below criteria are met: ~ respiratory rate LESS than or EQUAL to 8. ~ SaO2 less than 92% and or/end-tidal CO2 is greater than 50. ~ the patient is receiving an opioid, has unintended sedation assessed as RASS (-4) or (-5) and patient is currently not on mechanical ventilation. RASS scale (-4) is deep sedation with no response to voice but movement or eye opening to physical stimulation. RASS scale (-5) is unarousable. Patient Monitoring Once the patient has demonstrated a response to the naloxone, continue to monitor respiratory rate, depth, oxygen saturation and end-tidal CO2 (if available) every 15 minutes x 2, then every 30 minutes x 2, then every 1 hour x 1 after each naloxone dose. Consider transfer to ICU if patient respiratory parameters have not improved after 4 naloxone doses. Or naloxone (NARCAN) injection 0.2 mgJump to med 0.2 mg, Intramuscular, EVERY 2 MIN PRN, opioid reversal, Starting on Thu10/13/23 at 1536, Administer intramuscular if an intravenous route is not available and notify provider when administered. For unintended sedation or respiratory depression if all of the below criteria are met: ~ respiratory rate LESS than or EQUAL to 8. ~SaO2 less than 92% and or/end-tidal CO2 is greater than 50. ~ the patient is receiving an opioid, has unintended sedations assessed as RASS (-3), and is currently not on mechanical ventilation. RASS scale moderate (-3) is movement or eye opening to voice but no eye contact. Patient Monitoring Once the patient has demonstrated a response to the naloxone, continue to monitor respiratory rate, depth, oxygen saturation and end-tidal CO2 (if available) every 15 minutes x 2, then every 30 minutes x 2, then every 1 hour x 1 after each naloxone dose. Consider transfer to ICU if patient respiratory parameters have not improved after 4 naloxone doses. Or naloxone (NARCAN) injection 0.4 mgJump to med 0.4 mg, Intramuscular, EVERY 2 MIN PRN, opioid reversal, Starting on Thu10/13/23 at 1536, Administer intramuscular if an intravenous route is not available and notify provider when administered. For unintended sedation or respiratory depression if all of the below criteria are met: ~ respiratory rate LESS than or EQUAL to 8. ~ SaO2 less than 92% and or/end-tidal CO2 is greater than 50. ~ the patient is receiving an opioid, has unintended sedation assessed as RASS (-4) or (-5) and patient is currently not on mechanical ventilation. RASS scale (-4) is deep sedation with no response to voice but movement or eye opening to physical stimulation. RASS scale (-5) is unarousable. Patient Monitoring Once the patient has demonstrated a response to the naloxone, continue to monitor respiratory rate, depth, oxygen saturation and end-tidal CO2 (if available) every 15 minutes x 2, then every 30 minutes x 2, then every 1 hour x 1 after each naloxone dose. Consider transfer to ICU if patient respiratory parameters have not improved after 4 naloxone doses. Group 3: ondansetron (ZOFRAN ODT) ODT tab 4 mgJump to med 4 mg, Oral, EVERY 6 HOURS PRN, nausea, vomiting, Starting on Thu10/13/23 at 1315, This is Step 1 of nausea and vomiting management. If nausea not resolved in 15 minutes, go to Step 2 prochlorperazine (COMPAZINE). Do not push through foil backing. Peel back foil and gently remove. Place on tongue immediately. Administration with liquid unnecessary With dry hands, peel back foil backing and gently remove tablet. Do not push oral disintegrating tablet through foil backing. Administer immediately on tongue and oral disintegrating tablet dissolves in seconds, then swallow with saliva. Liquid not required. Or ondansetron (ZOFRAN) injection 4 mgJump to med 4 mg, Intravenous, EVERY 6 HOURS PRN, nausea, vomiting, Administer over 2-5 Minutes, Starting on 8/27/24 at 1315, This is Step 1 of nausea and vomiting management. If nausea not resolved in 15 minutes, go to Step 2 prochlorperazine (COMPAZINE). Group 4: oxyCODONE (ROXICODONE) tablet 5 mgJump to med 5 mg, Oral, EVERY 4 HOURS PRN, moderate pain, Starting on Thu10/13/23 at 1300, Hold oral PRN dose for analgesic side effects. Notify provider to assess for uncontrolled pain or analgesic side effects. Hold while on IV GRAPHICS EDIT TECHNICIAN or with regular IV opioid dosing. Or oxyCODONE (ROXICODONE) tablet 10 mgJump to med 10 mg, Oral, EVERY 4 HOURS PRN, severe pain, Starting on Thu10/13/23 at 1300, Hold oral PRN dose for analgesic side effects. Notify provider to assess for uncontrolled pain or analgesic side effects. Hold while on IV GRAPHICS EDIT TECHNICIAN or with regular IV opioid dosing. documented in this encounter Care Teams Consumer Experience Consultant Relationship Specialty Start Date End Date Ellen Draper MD [facility] [address] [place] [address] PCP - General Family Medicine 03/25/21 Haylee Melgar MD [facility], SHOBHA [facility] [address] [facility] [address] [place] [address] Assigned Surgical Provider 08/09/23 documented as of this encounter
--- OUTSIDE RECORDS SUMMARY | 2023-12-13 17:07 | XMS_ITS | Clinical Summary ---
[facility] Address [address], [place] [address] Care Team Providers Care Asbestos Siding Installer Name Role Phone Adriana Bridges MD Primary Care Provider [phone] Source Comments You are receiving this document as you are listed as the primary care provider,follow-up provider, or the patient has been referred to you for consultation.This is in compliance with the Medicare and[facility] EHR Incentive Program,which states Providers who transition their patient to another setting of careor provider of care or refers their patient to another provider of care shouldprovide summary care record for each transition of care or referral. [facility] Active Problems Problem Noted Date Diagnosed Date Segmental and somatic dysfunction of sacral rebekah on 01/22/2016 Low back pain 01/22/2016 Spasm of back muscles 01/22/2016 Immunizations Name Administration Dates Next Due DT Ped 11/24/1989 Flu Vac Preserv Free (3+yrs) 11/13/2008,12/26/19 07 Influenza IIV4 (Quadrivalent) 0.5mL (53909) 11/18,11/30/2012 Social History Tobacco Use Types Packs/Day [...] (1 of 2) 2009 COVID-19 Vaccine ( - 2023- season) 2023 Influenza (#1) 2023 12/15/2014, 11/16, 11/13/2008, Additional history exists RSV (1 - 1-dose 75+ series) 2034 HepA Aged Out No longer eligi ble based on patient's age to complete this topic HepB Aged Out No longer eligi ble based on patient's age to complete this topic Hib Aged Out No longer eligi ble based on patient's age to complete this topic IPV (Polio) Aged Out No longer eligi ble based on patient's age to complete this topic RSV Aged Out No longer eligi ble based on patient's age to complete this topic MCV4 Aged Out No longer eligi ble based on patient's age to complete this topic Pneumococcal Aged Out No longer eligi ble based on patient's age to complete this topic Care Teams Asbestos Siding Installer Relationship Specialty Start Date End Date Adriana Bridges MD [address] [place] [address] PCP - General Family Practice 01/21/16
--- OUTSIDE RECORDS SUMMARY | 2023-12-13 17:07 | XMS_ITS | Encounter Summary ---
Author Organization Count includes the [facility] Address [address] [address] Care Team Providers Care Program Associate Name Role Phone Adriana Bridges MD Primary Care Provider [phone] Encounter Details Date Type Department Care Team [...] on filedocumented in this encounter Care Teams Program Associate Relationship Specialty Start Date End Date Adriana Bridges MD [address] [place] [address] PCP - General Family Practice 01/21/16 documented as of this encounter
--- OUTSIDE RECORDS SUMMARY | 2023-12-13 17:07 | XMS_ITS | Encounter Summary ---
Author Organization [facility] Address [address] [facility] 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
--- OUTSIDE RECORDS SUMMARY | 2023-12-13 17:07 | XMS_ITS | Encounter Summary ---
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] Procedures AK THYROIDECTOMY AK THYROIDECTOMY,MALIG,LTD NECK SURG Total Thyroidectomy [facility] [address] [place] [address] Phone: tel: fax: Referral ID Status Reason Start Date Expiration Date Visits Re quested Visits Authorized [id number] 1 1 Encounter Details Date Type Department Care Team (Latest Contact Info) Description 10/13/2023 5:52 AM CDT - 10/14/2023 10:05 AM CDT Hospital Encounter [facility] 5 Medical Surgical [address] [place] [address] Haylee Melgar MD [facility] [address] [place] [address] S/P total thyroidectomy (Primary Dx) Discharge Disposition: Home or Self Care Social History Tobacco Use Types Packs/Day Years [...] in an abandoned building, in an overnight care home, or couch-surfing.) Yes 10/13/2023 Are you worried [...] on file 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 10/14/2023 11/03/19 24 ibuprofen (ADVIL/MOTRIN) 200 MG tabletIndications: S/P total [...] Melgar MD - 10/14/2023 8:08 AM CDT [facility] General Surgery Progress Note Assessment and Plan: Assessment: POD#1 s/p Procedure(s): Total thyroidectomy Feeling well aside from sore throat with swallowing Calcium/PTH normal Plan: -Discharge to home today with levothyroxine, oxycodone, tylenol, ibuprofen, and calcium carbonate 1000 BID - Follow up in 2 weeks with mt - Follow up in 6 weeks with [...] 10/13/23 0608 GLC -- -- 137* 88 JESUS 9.0 8.9 -- -- Haylee Melgar MD [...] Documentation Taken 10/13/20232153 by Michelle Ha RN Infection Prevention: cohorting utilized hand hygiene promoted [...] interview completed by pre-admitting RN or post- op/MACHINE CLOTHING MAN. Med List Status: Nurse Complete Set By: Sixto Moore RN Wed Oct 07, 2023 9:47 AM Reviewed by pharmacist, including [facility] dispense records, [facility] Everywhere, and chart review. Deanna Henderson RPH DAIRY BACTERIOLOGIST Med List Medication Sig Last Dose acetaminophen [...] your shift note. Outcome: Progressing Flowsheets (Taken 10/13/2023 1818) Outcome Evaluation: admission to unit from PACU [...] Ancef 2 gm SURGEON: Haylee Melgar MD LINE CAMERA OPERATOR: Abdirahman Fam PA-C, - the physician commercial loan assistant was medically necessary in providing adequate exposure in the operating field, maintaining hemostasis, cutting suture, clamping and ligatingblood vessels, and visualization of the anatomic structures throughout the surgical procedure. ESTIMATED BLOOD LOSS: 75 ml INDICATIONS: Paulina Pekrins is a 63 year old female with [...] superior pole Tissue Thyroid, Right SURGICAL PATHOLOGY EXAMHaylee Melgar MD 10/13/2023 9:28 AM 2 : Left [...] differs from PTH assays used in other [facility] laboratories. us Haylee Melgar MD LAB - BLOOD ORDERABLES Fin al Result [facility] Acute Care Lab [address] Lab (1st floor, no room number) [place] [address], [facility] * Calcium (10/14/2023 6:27 AM CDT) Calcium 9.0 8.8 - 10.4 mg/dL 10/14/2023 7:24 AM CDT [facility] Comment:Reference intervals for this test were [...] ORDERABLES Fin al Result Performing Organization Address City/[facility]/ZIP Co de Phone Number [facility] Lab [address] (1st floor, no room number) [place] [address] * Parathyroid Hormone Intact (10/13/2023 5:59 [...] differs from PTH assays used in other [facility] laboratories. Haylee Melgar MD LAB - BLOOD ORDERABLES Fin al Result [facility] Care Lab [address] Lab (1st floor, no room number) [place] [address] * Calcium (10/13/2023 5:59 PM CDT) Calcium [...] LAB - BLOOD ORDERABLES Fin al Result LABORATORY [facility] Acute Care Lab [address] Lab (1st floor, no room number) [place] [address], [facility] * (ABNORMAL) Glucose by meter (10/13/2023 11:14 AM CDT) GLUCOSE BY METER POCT 137(H) 70 - 99 mg/dL 10/13/2023 11:22 AM CDT LABORATORY POC Blood, Capillary BLOOD SPECIMEN / Unknown 10/13/2023 11:14 AM CDT 10/13/2023 11:22 AM CDT us Haylee Melgar MD LAB - BEAKER POCT Final Re sult Performing Organization Address City/[facility]/ZIP Co de Phone Number LABORATORY [facility] Acute Care Lab [address] Lab (1st floor, no room number) [place] [address], [facility] * Surgical Pathology Exam (10/13/2023 9:28 AM CDT) Case Report Surgical Pathology Report ? Case: [id number] ? Authorizing Provider: ??Haylee Melgar MD ?Collected: ? 10/13/2023 09:28 AM ? Ordering Location: ? [facility] ?? Received: ?10/13/2023 10:51 AM ? Main [...] surfaces. No tumor or calcifications are identified. Licensed Prosthetist/Orthotist sections submitted as follows: A1-superior lobe A2-middle [...] surfaces. No tumor or calcifications are identified. Licensed Prosthetist/Orthotist sections submitted as follows: B1-superior lobe B2-middle lobe B3-lower lobe B4-Isthmus to include margin (SHOBHA Benoit)10/13/2023 12:21 PM 10/14/2023 12:06 PM [facility] Microscopic Description Microscopic performed 10/14/2023 12:06 PM [facility] Performing Labs The technical component of this testing was completed at [facility]. Stain controls for all stains [...] - JOSE AP Final Resu lt LABORATORY [facility] [address] 1st floor, [address] [place] [address], [facility] [phone] LABORATORY [facility] Care Lab [address] (1st floor, no room number) [place] [address], [facility] * Glucose by meter (10/13/2023 6:08 AM CDT) [facility] GLUCOSE BY METER POCT 88 70 - 99 mg/dL 10/13/2023 6:52 AM CDT LABORATORY POC Blood, Capillary BLOOD SPECIMEN / Unknown 10/13/2023 6:08 AM CDT 10/13/2023 6:52 AM CDT Haylee SCHMIDT - BEPIPO POCT Final Re sult [facility] LABORATORY POC [facility] Care Lab [address] Lab (1st floor, no room number) [place] [address], [facility] documented in this encounter Visit Diagnoses Diagnosis S/P total thyroidectomy- Primary Other postprocedural status S/P total thyroidectomy Other postprocedural status documented in this encounter Administered Medications Inactive [...] $Given 10/13/2023 7:01 AM CDT 975 mg calcium carbonate (TUMS) chewable tablet 1,000 mg 1,000 mg, Oral, 3 TIMES DAILY, First dose on Thu10/13/23 at 1400, Indications: Calcium SupplementIndications:Calcium Supplement $Given 10/14/2023 8:47 AM CDT 1,000 [...] analgesic side effects. Hold while on IV GAS TECHNICIAN or with regular IV opioid dosing. oxyCODONE (ROXICODONE) tablet 5 mg 5 mg, Oral, EVERY 4 HOURS PRN, moderate pain, Starting on Thu10/13/23 at 1300, Hold oral PRN dose for analgesic side effects. Notify provider to assess for uncontrolled pain or analgesic side effects. Hold while on IV GAS TECHNICIAN or with regular IV opioid dosing. [...] $Given 10/13/2023 4:26 PM CDT 3 mLs documented in this encounter Active and Recently [...] mg/kg/day not to exceed 4 grams/day., Pre-procedure 07 ($Given - Provider: Apolonia Padron RN) calcium carbonate (TUMS) chewable tablet 1,000 mg 1,000 mg, Oral, 3 TIMES DAILY, First dose on Thu10/13/23 at 1400, Indications: Calcium Supplement 1625 ($Given - Provider: Anna Franco, RN)2031 ($Given - Provider: Michelle Ha, LINDA) 0847 [...] 0739 ($Given - Provider: Sukh Mcfadden APRN AGRICULTURAL SALES REPRESENTATIVE) ketorolac (TORADOL) injection 15 mg (COMPLETED) 15 [...] NOT CRUSH. 0638 ($Given - Provider: Michelle Ha, LINDA) sodium chloride (PF) 0.9% PF flush 3 mL (CANCELED) 3 mL, Intracatheter, EVERY 8 HOURS, First dose on Thu10/13/23 at 0700, to lock peripheral IV dormant line, Pre-procedure 0641 ($Given - Provider: Apolonia Padron, LINDA) sodium chloride (PF) 0.9% PF flush 3 mL 3 mL, Intracatheter, EVERY 8 HOURS, First dose on Thu10/13/23 at 1330, to lock peripheral IV dormant line 1626 ($Given - Provider: Anna Franco, RN)2036 (Canceled Entry - Provider: Michelle Ha, LINDA) 0333 ($Given - Provider: Jodee Miller, LINDA)0847 (Not Given - Provider: Anna Franco, LINDA - Reason: Other) Continuous Medication Order 10/12/2023 10/13/2023 10/14/2023 lactated ringers infusion (CANCELED) at 10 mL/hr, Intravenous, CONTINUOUS, IF patient NOT on dialysis., Pre-procedure, Starting on Thu10/13/23 at 0700, Until Thu10/13/23 at 1045 0641 ($New Bag - Provider: Jennifer Padron RN)1337 (Stopped - Provider: Marta Fierro, LINDA) lactated ringers infusion (CANCELED) at 100 mL/hr, Intravenous, CONTINUOUS, Continue until IV catheter is weaned, PACU, Starting on Thu10/13/23 at 1100, Until Thu10/13/23 at 1316 1100 (Rate/Dose Verify - Provider: Rylie Mckeon, LINDA) PRN Medication Order 10/12/2023 10/13/2023 10/14/2023 acetaminophen (TYLENOL) tablet 650 mg 650 mg, Oral, EVERY 6 HOURS PRN, mild pain, Starting on Thu10/13/23 at 1300, Do not use if patient has an active opioid/acetaminophen analgesic order for pain. Maximum acetaminophen dose from all sources = 75 mg/kg/day not to exceed 4 grams/day. 1306 ($Given - Provider: Keyla G Gingrich, RN) 0351 ($Given - Provider: Michelle Ha [...] analgesic side effects. Hold while on IV GAS TECHNICIAN or with regular IV opioid dosing. 1846 (See Alternative - Provider: Anna Franco RN) oxyCODONE (ROXICODONE) tablet 5 mg(Linked Group 4) 5 mg, Oral, EVERY 4 HOURS PRN, moderate pain, Starting on Thu10/13/23 at 1300, Hold oral PRN dose for analgesic side effects. Notify provider to assess for uncontrolled pain or analgesic side effects. Hold while on IV GAS TECHNICIAN or with regular IV opioid dosing. [...] analgesic side effects. Hold while on IV GAS TECHNICIAN or with regular IV opioid dosing. Or oxyCODONE (ROXICODONE) tablet 10 mgJump to med 10 mg, Oral, EVERY 4 HOURS PRN, severe pain, Starting on Thu10/13/23 at 1300, Hold oral PRN dose for analgesic side effects. Notify provider to assess for uncontrolled pain or analgesic side effects. Hold while on IV GAS TECHNICIAN or with regular IV opioid dosing. documented in this encounter Care Teams Commercial Reporter Relationship Specialty Start Date End Date Ellen Draper MD [facility] [address] [place] [address] PCP - General Family Medicine 03/25/21 Haylee Melgar MD [facility] [address] [facility] [address] [place] [address] Assigned Surgical Provider 08/09/23 documented as of this encounter
--- OUTSIDE RECORDS SUMMARY | 2023-12-13 17:07 | XMS_ITS | Encounter Summary ---
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Op [facility] [address] [place] [address] Phone: tel: fax: Referral ID Status Reason Start Date Expiration Date Visits Re quested Visits Authorized [id number] 1 1 Encounter Details Date Type Department Care Team (Late st Contact Info) Description 10/13/2023 7:36 AM CDT Anesthesia Event [facility] [address] [place] [address] [facility] ANESTHESIA [address] [place], [place] [id number] Anesthesia Record Procedure Summary Procedure Name Responsible Anesthesiologist Anesthesia Start Time Anesthesia Stop Time Total thyroidectomy (Bilateral: Neck) Bayron Dailey MD 10/13/23 0736 10/13/23 1048 Events Date Time Event Comment 10/13/2023 0706 LONG CHAIN BEAMER Ready for Procedure 0736 An Start Anesthesia Star t is defined as when the anesthesia provider assumed care, began anesthesia prep, remained continuously present with the patient, and excludes all time for performing the pre-anesthesia evaluation. The Pre-Anesthesia Evaluation was completed before Anesthesia Start. 0738 An Start Data 0738 AN REASSESS I attest that I have identified and re-evaluated the patient immediately before the induction of anesthesia and I am satisfied that the anesthetic plan is suitable for the patient's condition and procedure. The first vital signs recorded are pre- induction. Sukh Mcfadden APRN LONG CHAIN BEAMER 0744 An Induction 0744 MD Present 0747 An Intubation 0747 MD Present 0753 Anesthesia Ready for Procedu re 0810 MD Present 0911 MD Present 0957 MD Present 1042 AN Extubation All extubation criteria met prior to removal. 1043 an stop data 1044 MD Present 1048 An Stop Electronically signed by Sukh Mcfadden APRN LONG CHAIN BEAMER on October 13, 2023 10:48 AM 1048 MD Present Meds Name Total midazolam 1 mg/mL 2 mg fentaNYL 50 mcg/mL 100 mcg HYDROmorphone 1 mg/mL 1 mg lidocaine 2% 50 mg propofol 10 mg/mL 300 mg succinylcholine 20 mg/mL 80 mg phenylephrine (TERESA-SYNEPHRINE) injection 600 mcg dexamethasone (DECADRON) 4 mg/mL 8 mg ondansetron 2 mg/mL 4 mg ceFAZolin Sodium (ANCEF) injection 2 g 2 g LR 1,700 mL * Agents Name O2 N2O Air Exp Sevoflurane Exp Isoflurane Exp Desflurane Ins Sevoflurane Ins Isoflurane Ins Desflurane * Blood No blood administrations on file. Lines, Drains, and Airways Type Details Placement Removal Incision/Surgical Site 10/13/23; 1025; Anterior; Neck 10/13/23 1025 by Hernan Epps RN Peripheral IV 10/13/23; 0641; 20 G ; Anterior, Left; Hand 10/13/23 0641 by Apolonia Padron RN 10/14/23 0800 by Anna Franco RN ETT Placement Date: 10/13/23; Placement Time: 0747 (created via procedure documentation); Mask Ventilation: 0; Induction Type: Intravenous; Ease of Intubation: Easy; Technique: Direct laryngoscopy; Tube Size: 7 mm; DL Blade Size: Zhang 2; Grade View: 1; Adjucts: Stylet; Placement Person: LONG CHAIN BEAMER; Attempts: 1 10/13/23 0747 by Sukh Mcfadden APRN LONG CHAIN BEAMER 10/13/23 1042 by Sukh Mcfadden APRN CRNA Urethral Catheter 10/13/23; 0754; No; Surgical procedure; 16 fr; Other (comment) (End of surgery) 10/13/23 0754 by Hernan Epps RN 10/13/23 1025 by Hernan Epps RN documented in this encounter Social History Tobacco [...] in an abandoned building, in an overnight alf, or couch-surfing.) Yes 10/13/2023 Are you worried [...] on file Legal Sex Female 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 status CV/Hemodynamics: Uneventful Sign Out: Acceptable CV status Other NRE: NONE DID A NON-ROUTINE EVENT OCCUR? No Last vitals: Vitals Value Taken Time BP 129/76 10/13/23 1100 Temp 97.5 ??F (36.4 ??C) 10/13/23 1045 Pulse 77 10/13/23 1113 Resp 12 10/13/23 1113 SpO2 96 % 10/13/23 1113 Vitals shown include unfiled device data. Electronically Signed By: Bayron Dailey MD October 13, 2023 11:14 AM * Anesthesia Procedure Notes - Sukh Mcfadden APRN LONG CHAIN BEAMER - 10/13/2023 7:57 AM CDTAssociated Order(s): Airway Airway Patient location during procedure: OR Procedure Start/Stop Times: 10/13/2023 7:47 AM Staff - Performed By: ZACH Consent for Airway Urgency: elective Indications and Patient Condition Indications for airway management: minerva-procedural and airway protection Induction type:intravenous Mask difficulty assessment: 0 - not attempted Final Airway Details Final airway type: endotracheal airway Successful airway: ETT - single and Oral Endotracheal Airway Details ETT size (mm): 7.0 Cuffed: yes Successful intubation technique: direct laryngoscopy DL Blade Type: Zhang 2 Grade View of Cords: 1 Adjucts: stylet Position: Right Measured from: lips Secured at (cm): 22 Bite block used: None Post intubation assessment Placement verified by: capnometry and equal breath sounds Number of attempts at approach: 1 Number of other approaches attempted: 0 Secured with: tape Ease of procedure: easy Dentition: Intact Medication(s) Administered Medication Administration Time: 10/13/2023 7:47 AM * Anesthesia Preprocedure Evaluation - Bayron Dailey MD - 10/13/2023 7:02 AM CDT Anesthesia Pre-Procedure Evaluation Patient: Paulina Perkins : 1960 Procedure : Procedure(s): Total Thyroidectomy Past Medical History: Diagnosis Date Arrhythmia Atrial fibrillation (H) Atrial flutter (H) Atypical chest pain Diabetes (H) Gastro-oesophageal reflux disease Hypertension hx of atrial fib. Obesity h/o bariatric surgery Palpitations Renal disease Sleep apnea SVT (supraventricular tachycardia) (H24) Thyroid nodule Past Surgical History: Procedure Laterality Date APPENDECTOMY 1998 COLONOSCOPY 02/27/2011 Procedure:COLONOSCOPY; COLONOSCOPY; Surgeon:FABRICE HEIN; Location: GI COLONOSCOPY N/A 04/08/2021 Procedure: COLONOSCOPY; Surgeon: Bayron Thornton MD; Location: GI ENT SURGERY 1983 T&A GI SURGERY 1998 gastric pouch Allergies Allergen Reactions Penicillins Other (See Comments) and Rash Pt. Was a child- ? rash childhood allergy Compazine Prochlorperazine Other (See Comments) Other Reaction(s): restless legs, Tremors Adverse reaction Social History Tobacco Use Smoking status: Never Smokeless tobacco: Never Substance Use Topics Alcohol use: Yes Comment: 2 drinks per month Wt Readings from Last 1 Encounters: 10/13/23 112.9 kg (248 lb 14.4 oz) Anesthesia Evaluation Pt has had prior anesthetic. Type: General. No history of anesthetic complications ROS/MED HX ENT/Pulmonary: (+) sleep apnea, uses CPAP, Neurologic: - neg neurologic ROS Cardiovascular: Comment: History of atrial fibrillation, post ablation (+) hypertension- - - - - METS/Exercise Tolerance: Hematologic: - neg hematologic ROS Musculoskeletal: - neg musculoskeletal ROS GI/Hepatic: (+) GERD, Asymptomatic on medication, Renal/Genitourinary: - neg Renal ROS Endo: (+) thyroid problem, hyperthyroidism Thyroid disease - Other, Obesity, Psychiatric/Substance Use: - neg psychiatric ROS Infectious Disease: - neg infectious disease ROS Malignancy: - neg malignancy ROS Other: - neg other ROS Physical Exam Airway Mallampati: I TM distance: > 3 FB Neck ROM: full Mouth opening: > 3 cm Respiratory Devices and Support Dental no notable dental history Cardiovascular cardiovascular exam normal Pulmonary pulmonary exam normal OUTSIDE LABS: CBC: Lab Results Component Value Date WBC 6.3 07/27/2022 WBC 6.1 04/03/2019 HGB 14.3 07/27/2022 HGB 12.4 04/03/2019 HCT 44.4 07/27/2022 HCT 40.0 04/03/2019 PLT 239 07/27/2022 PLT 231 04/03/2019 BMP: Lab Results Component Value Date NA 138 07/27/2022 NA 138 04/20/2019 POTASSIUM 4.1 07/27/2022 POTASSIUM 4.2 04/20/2019 CHLORIDE 103 07/27/2022 CHLORIDE 104 04/20/2019 CO2 23 07/27/2022 CO2 26 04/20/2019 BUN 9.8 07/27/2022 BUN 13 04/20/2019 CR 0.77 07/27/2022 CR 0.7 04/20/2019 GLC 88 10/13/2023 GLC 127 (H) 07/27/2022 COAGS: No results found for: PTT, INR, FIBR POC: Lab Results Component Value Date HCG Negative 12/14/2006 HEPATIC: Lab Results Component Value Date ALBUMIN 4.3 07/27/2022 PROTTOTAL 7.2 07/27/2022 ALT 21 07/27/2022 AST 22 07/27/2022 ALKPHOS 82 07/27/2022 BILITOTAL 0.4 07/27/2022 OTHER: Lab Results Component Value Date A1C 6.0 (A) 04/20/2019 JESUS 9.2 07/27/2022 LIPASE 18 07/27/2022 AMYLASE 60 08/01/2006 TSH 0.223 04/20/2019 SED 8 09/03/2012 Anesthesia Plan ASA Status: 3 NPO Status: NPO Appropriate Anesthesia Type: General. - Airway: ETT Induction: Intravenous, Propofol. Maintenance: Balanced. Consents Anesthesia Plan(s) and associated risks, benefits, and realistic alternatives discussed. Questions answered and patient/advertising representative(s) expressed understanding. - Discussed: - Discussed with: Patient Postoperative Care Pain management: IV analgesics, Oral pain medications, Multi-modal analgesia. PONV prophylaxis: Ondansetron (or other 5HT-3), Dexamethasone or Solumedrol Comments: Bayron Dailey MD I have reviewed the pertinent notes and labs in the chart from the past 30 days and (re)examined the patient. Any updates or changes from those notes are reflected in this note. # Drug Induced Platelet Defect: home medication list includes an antiplatelet medication # Severe Obesity: Estimated body mass index is 42.7 kg/m?? as calculated from the following: Height as of this encounter: 1.626 m (5' 4.02). Weight as of this encounter: 112.9 kg (248 lb 14.4 oz). 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 Anesthesia Type: General Note: Oropharynx: spontaneously breathing Level of Consciousness: drowsy Oxygen Supplementation: face mask Independent Airway: airway patency satisfactory and stable Dentition: dentition unchanged Vital Signs Stable: post-procedure vital signs reviewed and stable Report to RN Given: handoff report given Patient transferred to: PACU Handoff Report: Identifed the Patient, Identified the Reponsible Provider, Reviewed the pertinent medical history, Discussed the surgical course, Reviewed Intra-OP anesthesia mangement and issues during anesthesia, Set expectations for post-procedure period and Allowed opportunity for questions andacknowledgement of understanding Vitals: Vitals Value Taken Time BP Temp Pulse 86 10/13/23 1047 Resp 12 10/13/23 1047 SpO2 100 % 10/13/23 1047 Vitals shown include unfiled device data. Electronically Signed By: Sukh Mcfadden APRN CRNA October 13, 2023 10:49 AM documented in this encounter Plan of Treatment Not on file documented as of this encounter Procedures Procedure Name Priority Date/Time Associated Diagnosis Comments ANE AIRWAY ETT PERFORMABLE Routine 10/13/2023 7:47 AM CDT documented in this encounter Results * ANE AIRWAY ETT PERFORMABLE (10/13/2023 7:47 AM CDT) Narrative Sukh Mcfadden APRN CRNA - 10/13/2023 7:47 AM CDT Suhk Mcfadden APRN CRNA ? 10/13/2023 ??7:57 AM Airway ? Patient location during procedure: OR ? Procedure Start/Stop Times: 10/13/2023 7:47 AM Staff - ? Performed By: LONG CHAIN BEAMER Consent for Airway ? Urgency: elective Indications [...] Administered Medication Administration Time: 10/13/2023 7:47 AM Bayron Dailey MD IN ANESTHESIA Final Result documented in this encounter Visit Diagnoses Not on filedocumented in this encounter Administered Medications Inactive Administered Medications - up to 3 most recent administrations Medication Order MAR Action Action Date Dose Rate Site ceFAZolin Sodium (ANCEF) injection 2 g Routine, 2 g, Intravenous, PRE-OP/PRE-PROCEDURE, Starting on Thu10/13/23 at 0637, For 1 dose, Give first dose within 1 hour PRIOR to incision. If patient weight is greater than or equal to 120 kg increase dose to 3 g., Indications: Perioperative Pharmacoprophylaxis, Pre-procedureIndications:Perioperat annabelle Pharmacoprophylaxis $Given 10/13/2023 7:39 AM CDT 2 g dexAMETHasone (DECADRON) injection Intravenous, PRN, Administer over 1 Minutes, Starting on Thu10/13/23 at 0745, Anesthesia Intra-op $Given 10/13/2023 7:45 AM CDT 8 mg fentaNYL (PF) (SUBLIMAZE) injection Intravenous, PRN, Administer over 3-5 Minutes, Starting on Thu10/13/23 at 0744, Anesthesia Intra-op $Given 10/13/2023 7:56 AM CDT 50 mcg $Given 10/13/2023 7:44 AM CDT 50 mcg HYDROmorphone (DILAUDID) injection Intravenous, PRN, Starting on Thu10/13/23 at 0815, Anesthesia Intra-op $Given 10/13/2023 8:15 AM CDT 1 mg lactated ringers infusion Intravenous, CONTINUOUS PRN, Anesthesia Intra-op, Starting on Thu10/13/23 at 0706, Until Thu10/13/23 at 1048 $New Bag 10/13/2023 8:47 AM CDT $New Bag 10/13/2023 7:06 AM CDT lidocaine 2% injection (MDV) Intravenous, PRN, Starting on Thu10/13/23 at 0744, Anesthesia Intra-op $Given 10/13/2023 7:44 AM CDT 50 mg midazolam (VERSED) injection Intravenous, Administer over 2 Minutes, PRN, Starting on Thu10/13/23 at 0737, Anesthesia Intra-op $Given 10/13/2023 7:37 AM CDT 2 mg ondansetron (ZOFRAN) injection Intravenous, PRN, Administer over 2-5 Minutes, Starting on Thu10/13/23 at 1019, Anesthesia Intra-op $Given 10/13/2023 10:19 AM CDT 4 mg phenylephrine (TERESA-SYNEPHRINE) injection Intravenous, CONTINUOUS PRN, Starting on Thu10/13/23 at 0808, Anesthesia Intra-op $Bolus 10/13/2023 8:20 AM CDT 200 mcg $Bolus 10/13/2023 8:11 AM CDT 200 mcg $New Bag 10/13/2023 8:08 AM CDT 200 mcg propofol (DIPRIVAN) injection 10 mg/mL vial Intravenous, PRN, Starting on Thu10/13/23 at 0744, Anesthesia Intra-op $Given 10/13/2023 7:53 AM CDT 100 mg $Given 10/13/2023 7:44 AM CDT 200 mg succinylcholine (ANECTINE) injection Intravenous, PRN, Starting on Thu10/13/23 at 0745, Anesthesia Intra-op $Given 10/13/2023 7:45 AM CDT 80 mg documented in this encounter Care Teams Family Consumer Science Fcs Teacher Relationship Specialty Start Date End Date Ellen Draper MD [facility] [address] [place] [address] PCP - General Family Medicine 03/25/21 Haylee Melgar MD [facility] [address] [facility] [address] [place] [address] Assigned Surgical Provider 08/09/23 documented as of this encounter
--- OUTSIDE RECORDS SUMMARY | 2023-12-13 17:07 | XMS_ITS | Referral Summary ---
Author Organization [place] Address [address] [place] [address] Care Team Providers Care Organizational Effectiveness Consultant Name Role Phone Ellen Draper MD Primary Care Provider [phone] Haylee Melgar MD Unavailable [phone] Encounters Date Type Department Care Team Description 11/03/2023 Travel 11/03/2023 2:15 PM CDT Office Visit [facility] [place] [address] [place] [address] Haylee Melgar MD Toxic multinodular goiter (Primary Dx) 10/13/2023 5:52 AM CDT - 10/14/2023 10:05 AM CDT Hospital Encounter [facility] 5 Medical Surgical [address] [place] [address] Haylee Melgar MD S/P total thyroidectomy (Primary Dx) Discharge Disposition: Home or Self Care 10/13/2023 7:36 AM CDT Anesthesia Event [facility] [address] [place] [address] Bayron Dailey MD 10/13/2023 Travel 10/13/2023 7:40 AM CDT - 10/13/2023 10:[address] 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 Haylee Melgar MD LAB - BLOOD ORDERABLES [facility] al Result Performing Organization Address [facility] Co de Phone Number [facility] [address] Lab (1st floor, no room number) [place] [phone] [place] [address] * Calcium (10/14/2023 6:27 AM CDT) Only the most recent of2 resultswithin the time period is included. Pathologist [facility] Calcium 9.0 8.8 - 10.4 mg/dL 10/14/2023 [...] Fin al Result Performing Organization Address [facility] Co de Phone Number LABORATORY [facility] [address] Lab (1st floor, no room number) [place] [address] * (ABNORMAL) Glucose by meter (10/13/2023 11:14 AM CDT) Only the most recent of2 resultswithin the time period is included. GLUCOSE BY METER POCT 137(H) 70 - 99 mg/dL 10/13/2023 11:22 AM CDT [facility] LABORATORY POC Blood, Capillary BLOOD SPECIMEN / Unknown 10/13/2023 11:14 AM CDT 10/13/2023 11:22 AM CDT us Haylee Melgar MD LAB - AKER POCT Final Re sult LABORATORY [facility] Acute Care Lab [address] [facility] Lab (1st floor, no room number) [place] [address] * Surgical Pathology Exam (10/13/2023 9:28 AM CDT) Case Report Surgical Pathology Report ? Case: [id number] ? Authorizing Provider: ??Haylee Melgar MD ?Collected: ? 10/13/2023 09:28 AM ? Ordering Location: ? [facility] ?? Received: ?10/13/2023 10:51 AM [...] surfaces. No tumor or calcifications are identified. Radio Broadcaster sections submitted as follows: A1-superior lobe A2-middle [...] surfaces. No tumor or calcifications are identified. Radio Broadcaster sections submitted as follows: B1-superior lobe B2-middle lobe B3-lower lobe B4-Isthmus to include margin (SHOBHA Benoit)10/13/2023 12:21 PM 10/14/2023 12:06 PM CDT LABORATORY Microscopic Description Microscopic performed 10/14/2023 12:06 PM CDT LABORATORY Performing Labs The technical component of this testing was completed at [facility]. Stain controls for [...] CDT us Haylee Melgar MD LAB - JOSE GRAJEDA Final Resu lt LABORATORY [facility] Acute Care Lab [address] 1st floor, [address] [place] [address], [place] [phone] LABORATORY [facility] Acute Care Lab [address] [facility] Lab (1st floor, no room number) [place] [address], [facility] * ANE AIRWAY ETT PERFORMABLE (10/13/2023 7:47 AM CDT) Sukh Sewell APRN ROTARY DRYER OPERATOR - 10/13/2023 7:47 AM CDT Sukh Mcfadden APRN ROTARY DRYER OPERATOR ? 10/13/2023 ??7:57 AM Airway ? Patient location during procedure: OR ? Procedure Start/Stop Times: 10/13/2023 7:47 AM Staff - ? Performed By: ROTARY DRYER OPERATOR Consent for Airway ? Urgency: elective Indications [...] 10/13/2023 7:47 AM us Bayron Dailey MD [place] ANESTHESIA Final Result * EKG Cardiac - HIM Scan (09/16/2023 12:00 AM CDT) Only the most recent of2 resultswithin the time period is included. 09/16/2023 us Provider Outside ECG ORDERABLES Final Result * [...] 07/27/2022 5:27 AM CDT LABORATORY Comment:eGFR calculated us2020 CKD-EPI equation. Blood STRUCTURE OF LEFT UPPER LIMB / Unknown Venipuncture / Unknown 07/27/2022 4:49 AM CDT 07/27/2022 4:53 AM CDT Andrea Medellin MD LAB - BLOOD ORDER CAMRYN Final Result LABORATORY [facility] Acute Care Lab [address] Lab (1st floor, no room number) [place] [address], [facility] [phone] * MA Screening Digital Bilateral (07/11/2022 7:38 [...] Final Result * COLONOSCOPY (04/08/2021 7:32 AM CYCLE DIRECTOR) [facility] Patient Name: Paulina Perkins [...] continuously. The ?Olympus Adult Colonoscope, Model # CF-NM828B, ?[place]ora # 225, SN # [id number] was introduced through ?the anus and advanced [...] malignant neoplasm of colon CPT copyright 2020 [employer]. All rights reserved. The codes documented in this report are preliminary and upon administrative support technician review may be revised to meet current compliance requirements. Electronically signed by Bayron Thornton MD __ Bayron Thornton MD 04/08/2021 8:11:15 AM I was physically present for the entire viewing portion of the exam. Bayron Thornton MD Number of Addenda: 0 Note Initiated On: 04/08/2021 7:32 AM MRN: ?[id number] Procedure Date: ? 04/08/2021 7:32:20 AM Scope Withdrawal Time: 0 hours 6 minutes 8 seconds Total Procedure Duration: 0 hours 20 minutes 8 seconds Estimated Blood Loss: ? Scope In: 7:45:28 AM Scope Out: 8:05:36 AM RADIOLOGY RESULTS 04/08/2021 7:32 AM CYCLE DIRECTOR us Bayron Thornton MD PROCEDURES Final Result Performing Organization Address [facility] Co de Phone Number RADIOLOGY RESULTS * TSH (04/20/2019) TSH 0.223 0.270 - 4.20 mcU/mL [facility] Blood specimen (specimen) 04/20/2019 us Patient Reported LAB - BLOOD ORDERABLES Final Re sult Performing Organization Address [facility] Co de Phone Number [facility] [address] [phone] * Lipid Profile (04/20/2019) Cholesterol 143 90 - 200 mg/dL [facility] Triglycerides 108 40 - 197 mg/dL [facility] HDL Cholesterol 42 >=50 mg/dL [facility] LDL Cholesterol Calculated 79 <100 mg/dL [facility] Non HDL Cholesterol [facility] Blood specimen (specimen) 04/20/2019 us Patient Reported LAB - BLOOD ORDERABLES Final Re sult Performing Organization Address [facility] de Phone Number [facility] [address] [phone] from Last 3 Months or Most Recently Relevant to Health Maintenance Insurance [employer] [facility] Advance Directives For more information, please contact: [phone] * Full Code (Latest Code Status on File) Date Activated Date Inactivated Comments 10/13/2023 1:15 PM 10/14/2023 12:10 PM All basic a nd advanced life-sustaining interventions are performed as appropriate Question Answer Comments Code status determined by: Discussion with patie nt/ legal decision maker Care Teams Organizational Effectiveness Consultant Relationship Specialty Start Date End Date Ellen Draper MD [facility] [address] [place] [address] PCP - General Family Medicine 03/25/21 Haylee Melgar MD [facility] [address] [place] [address] Assigned Surgical Provider 08/09/23
--- OUTSIDE RECORDS SUMMARY | 2023-12-13 17:07 | XMS_ITS | Encounter Summary ---
Author Organization [facility] Address [address] [address] Care Team Providers Care Medical Front Desk Coordinator Name Role Phone Adriana Bridges MD Primary Care Provider [phone] Encounter Details Date Type Department Care Team [...] on filedocumented in this encounter Care Teams Medical Front Desk Coordinator Relationship Specialty Start Date End Date Adriana Bridges MD [address] [place] [address] PCP - General Family Practice 01/21/16 documented as of this encounter
--- OUTSIDE RECORDS SUMMARY | 2023-12-13 17:07 | XMS_ITS | Encounter Summary ---
Author Organization [facility] Address [address] [facility] [place] [address] Care Team Providers Care Herb Grower Name Role Phone Ellen Draper MD Primary Care Provider [phone]- [phone] Haylee Melgar MD Unavailable [phone] Encounter Details Date Type Department Care Team (Latest Contact Info) Description 10/13/2023 Travel Social History Tobacco Use Types Packs/Day [...] in an abandoned building, in an overnight fdc, or couch-surfing.) Yes 10/13/2023 Are you worried [...] on file Legal Sex Female 4:12 AM DENTAL FLOSS PACKER Gender Identity Not on file Sexual Orientation Not on file documented as of this encounter Plan of Treatment Not on file documented as of this encounter Visit Diagnoses Not on filedocumented in this encounter Care Teams Herb Grower Relationship Specialty Start Date End Date Ellen Draper MD [facility] [address] [place] [address] PCP - General Family Medicine 03/25/21 Haylee Melgar MD [facility] [address] [facility] [address] [place] [address] Assigned Surgical Provider 08/09/23 documented as of this encounter
--- OUTSIDE RECORDS SUMMARY | 2023-12-13 17:07 | XMS_ITS | Encounter Summary ---
Author Organization [facility] Address [address] [place] [address] Care Team Providers Care Pc Network Technician Name Role Phone Ellen Draper MD Primary Care Provider [phone] Haylee Melgar MD Unavailable [phone] Reason for Visit * Reason Comments Post-Op - General Surgery 1st PO, Total Thyroidectomy 10/12 Encounter Details Date Type Department Care Team (Late st Contact Info) Description 11/03/2023 2:15 PM CDT Office Visit [facility] [address], [address] [place] [address] Haylee Melgar MD [facility] [address] [facility] [address] [place] [address] Toxic multinodular goiter (Primary Dx) [...] in an abandoned building, in an overnight longterm, or couch-surfing.) Yes 10/13/2023 Are you worried [...] on file 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 Gender Identity Not on file Sexual Orientation Not on file documented as of this encounter Last Filed Vital Signs Vital Sign Reading Time Taken Comments Blood Pressure 128/86 11/03/2023 2:03 PM CDT Pulse 77 11/03/2023 2:03 PM CDT Temperature - - Respiratory Rate 16 11/03/2023 2:03 PM CDT Oxygen Saturation 98% 11/03/2023 2:03 PM CDT Inhaled Oxygen Concentration - - Weight 112.5 kg (248 lb) 11/03/2023 2:03 PM CDT Height 162.6 cm (5' 4) 11/03/2023 2:03 PM CDT Body Mass Index 42.57 11/03/2023 2:03 PM CDT documented in this encounter Progress Notes * Haylee Melgar MD - 11/03/2023 2:15 PM CDT Progress Note/Post-op Follow up: Paulina is here for follow up after total thyroidectomy 3 weeks ago. She reports good energy. Denies numbness or tingling. Incisional discomfort is nearly resolved. Physical Exam: BP 128/86 Pulse 77 Resp 16 Ht 1.626 m (5' 4) Wt 112.5 kg (248 lb) SpO2 98% BMI 42.57 kg/m?? General: Appears well, in no acute distress HEENT: Chvostek's sign is negative. Neck: Incision site healing nicely, Healing ridge is minimal. Range of motion is normal. Neuro: Voice is Normal. Pathology: Pathology was reviewed with the patient. Thyroid, total thyroidectomy- Nodular hyperplasia, no evidence of malignancy, enlarged at 142.8 grams Assessment and Plan: Paulina is doing well after total thyroidectomy. I recommend a follow up with Dr. Aly Ramirez in the next few weeks for TSH check. She is currently on 175 mcg of levothyroxine and is feeling well. Her parathyroid function has been normal post-operatively and she is no longer on post-operative calcium supplementation. I recommended that she protect the incision from the sun for the next 6-12 months using SPF50+ sunscreen whenever outside. I also recommended starting scar massage to soften the incision and help with neck range of motion. I would be happy to see her if there are any ongoing issues, but currently, there are no signs of post-operative complications. 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
== END 2023-12-11 09:01 | disposition home or self-care (01) ==
LOC: NFLDREF 12-13 17:05
PROVIDERS: PCP Emergency Medicine; Referring Provider Emergency Medicine; Visit Provider Emergency Medicine
DX: E78.2 Mixed hyperlipidemia (principal)
CPT/HCPCS: 80061

== ENCOUNTER 2024-08-09 08:40 | Outpatient (CLI) | payer MEDICARE, SELFPAY | END 2024-08-09 08:41 | disposition home or self-care (01) | LOC: LKVREF 08:41 | PROVIDERS: PCP Emergency Medicine; Visit Provider Emergency Medicine | DX: I10 Essential (primary) hypertension (principal) | CPT/HCPCS: 80048 ==

== ENCOUNTER 2024-12-09 08:22 | Outpatient (CLI) | payer MEDICARE, SELFPAY | END 2024-12-09 08:23 | disposition home or self-care (01) | LOC: NFLDREF 12-10 19:51 | PROVIDERS: PCP Family Medicine; Referring Provider Family Medicine; Visit Provider Family Medicine | DX: E11.9 Type 2 diabetes mellitus without complications (principal); I10 Essential (primary) hypertension; E78.2 Mixed hyperlipidemia; E89.0 Postprocedural hypothyroidism | CPT/HCPCS: 80053; 80061; 82043; 82570; 84439; 84443 ==